=== PATIENT | male | born 1960 | race Caucasian/White ===

== ENCOUNTER 2018-06-20 16:07 | Inpatient (IN) | payer BC ==
--- OUTSIDE RECORDS SUMMARY | 2018-06-20 16:11 | XMS REPORT | Summary of Care ---
:1960 Author Organization [facility] Address [id number] [place] [phone] Encounter HQ Eshar_marino(FIN) [id number] Date(s): 01/30/16 - 01/31/16 [facility] [id number] [place] [address] [phone] Discharge Disposition: Home or Self Care Attending Physician: Rachid Sánchez MD Admitting Physician: Rachid Sánchez MD Vital Signs Most recent to oldest 1 2 3 [Reference Range]: Height 182.88 cm (01/30/16 10:51 AM) Temperature Oral [96.4-99.1 97.9 DegF 98.0 DegF 98.2 DegF DegF] (01/31/16 7:38 AM) (01/31/16 5:06 AM) (01/31/16 12:49 AM) Blood Pressure [90-140/60-90 138/87 mmHg 137/82 mmHg 154/90 mmHg mmHg] (01/31/16 7:38 AM) (01/31/16 5:06 AM) *HI* (01/31/16 12:49 AM) Respiratory Rate [14-20 16 BRMIN 16 BRMIN 16 BRMIN BRMIN] (01/31/16 7:38 AM) (01/31/16 5:06 AM) (01/31/16 12:49 AM) Peripheral Pulse Rate [60-100 82 bpm 89 bpm 86 bpm bpm] (01/31/16 7:38 AM) (01/31/16 5:06 AM) (01/31/16 12:49 AM) Weight 82.727 kg (01/30/16 10:51 AM) Body Mass Index 24.74 m2 (01/30/16 10:51 AM) Problem List Condition Effective Dates Status Health Status Informant Stroke(Confirmed) Resolved Diabetes(Confirmed) Resolved Hypertension(Confirmed) Resolved Allergies, Adverse Reactions, Alerts Substance Reaction Severity Status NKDA Active Medications amLODIPine 10 mg, 2 tab, Route: PO, Drug form: TAB, Daily, Dosing Weight 82.727, kg, Start date: 01/31/16 9:00:00 PHARMACEUTICAL LABORATORY TECHNICIAN, Duration: 30 day, Stop date: 02/29/16 9:00:00 PHARMACEUTICAL LABORATORY TECHNICIAN Notes: (Same as: [facility]) Start Date: 01/31/16 Stop Date: 01/31/16 Status: DiscontinuedamLODIPine 2.5 mg, PO, Daily, 0 Refill(s) Start Date: 01/30/16 Stop Date: 01/31/16 Status: DiscontinuedamLODIPine 10 mg oral tablet 10 mg=1 tab, PO, Daily, # 30 tab, 0 Refill(s), Pharmacy: [facility]/pharmacy #[id number] Start Date: 01/31/16 Status: Orderedaspirin 324 mg, 4 tab, Route: PO, Drug form: CHEWTAB, ONCE, Dosing Weight 82.727, kg, Priority: STAT, Start date: 01/30/16 11:23:00 PHARMACEUTICAL LABORATORY TECHNICIAN, Stop date: 01/30/16 11:23:00 PHARMACEUTICAL LABORATORY TECHNICIAN Notes: Take with food. Start Date: 01/30/16 Stop Date: 01/30/16 Status: Completedaspirin 325 mg tablet, enteric coated 325 mg, 1 tab, Route: PO, Drug form: ECTAB, Daily, Dosing Weight 82.727, kg, Start date: 01/31/16 9:00:00 PHARMACEUTICAL LABORATORY TECHNICIAN, Duration: 30 day, Stop date: 02/29/16 9:00:00 PHARMACEUTICAL LABORATORY TECHNICIAN Notes: (Do Not Crush) Do not crush or chew. Start Date: 01/31/16 Stop Date: 01/31/16 Status: Discontinuedaspirin 325 mg tablet, enteric coated 325 mg=1 tab, PO, Daily, 0 Refill(s) Start Date: 01/31/16 Status: Orderedatorvastatin 40 mg, 1 tab, Route: PO, Drug form: TAB, Bedtime, Dosing Weight 82.727, kg, Start date: 01/30/16 21:00:00 PHARMACEUTICAL LABORATORY TECHNICIAN, Duration: 30 day, Stop date: 02/28/16 21:00: 00 PHARMACEUTICAL LABORATORY TECHNICIAN Notes: (Same as: Lipitor) Start Date: 01/30/16 Stop Date: 01/31/16 Status: Discontinuedatorvastatin 80 mg, PO, Daily, 0 Refill(s) Start Date: 01/30/16 Stop Date: 01/31/16 Status: Discontinuedatorvastatin 40 mg oral tablet 40 mg=1 tab, PO, Bedtime, 0 Refill(s) Start Date: 01/31/16 Status: Orderedbaclofen 10 mg, 1 tab, Route: PO, Drug form: TAB, TID, Dosing Weight 82.727, kg, Start date: 01/31/16 13:00:00 PHARMACEUTICAL LABORATORY TECHNICIAN, Duration: 30 day, Stop date: 03/01/16 9:00:00 PHARMACEUTICAL LABORATORY TECHNICIAN Notes: (Same As: [facility]) Start Date: 01/31/16 Stop Date: 01/31/16 Status: Discontinuedbaclofen 10 mg, PO, TID, 0 Refill(s) Start Date: 01/30/16 Status: OrderedCarafate 1 g/10 mL oral suspension 1 gm, 10 mL, Route: PO, Drug form: SUSP, QID, Dosing Weight 82.727, kg, Start date: 01/30/16 21:00:00 PHARMACEUTICAL LABORATORY TECHNICIAN, Duration: 30 day, Stop date: 02/29/16 17:00:00 PHARMACEUTICAL LABORATORY TECHNICIAN Notes: Enteral feeds may interfere with the absorption of this medication. Shake well. Take 1 hr before or 2 hrs after antacids, dairy pdt, minerals & meals. (Same As: Carafate) Start Date: 01/30/16 Stop Date: 01/31/16 Status: Discontinuedcefuroxime 500 mg oral tablet 500 mg=1 tab, PO, Q12H, 0 Refill(s) Start Date: 01/30/16 Stop Date: 01/31/16 Status: DiscontinuedcloNIDine 0.2 mg, TOP, Q7D, 0 Refill(s) Start Date: 01/30/16 Status: OrderedcloNIDine patch 0.2 mg/24 hr 1 patch, Route: TOP, Drug Form: ERFILM, Dosing Weight 82.727, kg, Q7D, Start date: 01/30/16 17:53:00CST, Duration: 30 day, Stop date: 02/27/16 9:00:00 PHARMACEUTICAL LABORATORY TECHNICIAN Notes: Patch delivers 0.2 mg/24 hours; Patch is applied weekly. "Remove old patch before application of new patch" (Same As: [id number]) Start Date: 01/30/16 Stop Date: 01/31/16 Status: Discontinuedclopidogrel 75 mg, PO, Daily, 0 Refill(s) Start Date: 01/30/16 Status: OrderedDextrose 50% Syringe 12.5 gm, 25 mL, Route: IVP, Drug Form: INJ, Dosing Weight 82.727, kg, PRN, PRN Blood Glucose Results, Start date: 01/30/16 17:03:00 PHARMACEUTICAL LABORATORY TECHNICIAN, Duration: 30 day, Stop date: 02/29/16 17:02:00 PHARMACEUTICAL LABORATORY TECHNICIAN Start Date: 01/30/16 Stop Date: 01/31/16 Status: DiscontinuedDextrose 50% Syringe 25 gm, 50 mL, Route: IVP, Drug Form: INJ, Dosing Weight 82.727, kg, PRN, PRN Blood Glucose Results, Start date: 01/30/16 17:03:00 PHARMACEUTICAL LABORATORY TECHNICIAN, Duration: 30 day, Stop date: 02/29/16 17:02:00 PHARMACEUTICAL LABORATORY TECHNICIAN Start Date: 01/30/16 Stop Date: 01/31/16 Status: Discontinuedescitalopram 10 mg, 1 tab, Route: PO, Drug form: TAB, Daily, Dosing Weight 82.727, kg, Start date: 02/01/16 9:00:00 PHARMACEUTICAL LABORATORY TECHNICIAN, Duration: 30 day, Stop date: 03/01/16 9:00:00 PHARMACEUTICAL LABORATORY TECHNICIAN Notes: (Same as: Lexapro) Start Date: 02/01/16 Stop Date: 01/31/16 Status: Canceledescitalopram 10 mg, PO, Daily, 0 Refill(s) Start Date: 01/30/16 Status: Orderedglucagon 1 mg, Route: IM, Drug form: PDR/INJ, PRN, Dosing Weight 82.727, kg, PRN Blood Glucose Results, Startdate: 01/30/16 17:03:00 PHARMACEUTICAL LABORATORY TECHNICIAN, Duration: 30 day, Stop date: 02/29/16 17:02:00 PHARMACEUTICAL LABORATORY TECHNICIAN Start Date: 01/30/16 Stop Date: 01/31/16 Status: Discontinuedinsulin aspart 10 unit, 0.1 mL, Route: SUB-Q, Drug form: SOLN, TID-Before Meals, Dosing Weight 82.727, kg, PRN Blood Glucose Results, Start date: 01/30/16 17:03:00 PHARMACEUTICAL LABORATORY TECHNICIAN, Duration: 30 day, Stop date: 02/29/16 17:02:00 PHARMACEUTICAL LABORATORY TECHNICIAN Notes: Roll in palms of hands gently; Do not shake vigorously. (Same as: NovoLOG)"single patient use only"WASTE: F/P - Black; E - Municipal Trash Bin Stable for 28 days at room temperature.Expires in days from Date Start Date: 01/30/16 Stop Date: 01/31/16 Status: Discontinuedinsulin aspart 8 unit, 0.08 mL, Route: SUB-Q, Drug form: SOLN, TID-Before Meals, Dosing Weight 82.727, kg, PRN Blood Glucose Results, Start date: 01/30/16 17:03:00 PHARMACEUTICAL LABORATORY TECHNICIAN, Duration: 30 day, Stop date: 02/29/16 17:02:00 PHARMACEUTICAL LABORATORY TECHNICIAN Notes: Roll in palms of hands gently; Do not shake vigorously. (Same as: NovoLOG)"single patient use only"WASTE: F/P - Black; E - [facility] Trash Bin Stable for 28 days at room temperature.Expires in days from Date Start Date: 01/30/16 Stop Date: 01/31/16 Status: Discontinuedinsulin aspart 2 unit, 0.02 mL, Route: SUB-Q, Drug form: SOLN, TID-Before Meals, Dosing Weight 82.727, kg, PRN Blood Glucose Results, Start date: 01/30/16 17:03:00 PHARMACEUTICAL LABORATORY TECHNICIAN, Duration: 30 day, Stop date: 02/29/16 17:02:00 PHARMACEUTICAL LABORATORY TECHNICIAN Notes: Roll in palms of hands gently; Do not shake vigorously. (Same as: NovoLOG)"single patient use only"WASTE: F/P - Black; E - Municipal Trash Bin Stable for 28 days at room temperature.Expires in days from Date Start Date: 01/30/16 Stop Date: 01/31/16 Status: Discontinuedinsulin aspart 4 unit, 0.04 mL, Route: SUB-Q, Drug form: SOLN, TID-Before Meals, Dosing Weight 82.727, kg, PRN Blood Glucose Results, Start date: 01/30/16 17:03:00 PHARMACEUTICAL LABORATORY TECHNICIAN, Duration: 30 day, Stop date: 02/29/16 17:02:00 PHARMACEUTICAL LABORATORY TECHNICIAN Notes: Roll in palms of hands gently; Do not shake vigorously. (Same as: [employer])"single patient use only"WASTE: F/P - Black; E - Municipal Trash Bin Stable for 28 days at room temperature.Expires in days from Date Start Date: 01/30/16 Stop Date: 01/31/16 Status: Discontinuedinsulin aspart 6 unit, 0.06 mL, Route: SUB-Q, Drug form: SOLN, TID-Before Meals, Dosing Weight 82.727, kg, PRN Blood Glucose Results, Start date: 01/30/16 17:03:00 PHARMACEUTICAL LABORATORY TECHNICIAN, Duration: 30 day, Stop date: 02/29/16 17:02:00 PHARMACEUTICAL LABORATORY TECHNICIAN Notes: Roll in palms of hands gently; Do not shake vigorously. (Same as: NovoSeamless)"single patient use only"WASTE: F/P - Black; E - Municipal Trash Bin Stable for 28 days at room temperature.Expires in days from Date Start Date: 01/30/16 Stop Date: 01/31/16 Status: DiscontinuedInsulin regular 10 unit, Route: IVP, ONCE, Dosing Weight 82.727, kg, Priority: STAT, Start date : 01/30/16 12:53:00 PHARMACEUTICAL LABORATORY TECHNICIAN, Stop date: 01/30/16 12:53:00 PHARMACEUTICAL LABORATORY TECHNICIAN Start Date: 01/30/16 Stop Date: 01/30/16 Status: CompletedJanuvia 100 mg, 2 tab, Route: PO, Drug form: TAB, Daily, Dosing Weight 82.727, kg, Start date: 02/01/16 9:00:00 PHARMACEUTICAL LABORATORY TECHNICIAN, Duration: 30 day, Stop date: 03/01/16 9:00:00 PHARMACEUTICAL LABORATORY TECHNICIAN Notes: Same as Januvia Non-Formulary Item Start Date: 02/01/16 Stop Date: 01/31/16 Status: CanceledJanuvia 25 mg, 0.5 tab, Route: PO, Drug form: TAB, Daily, Dosing Weight 82.727, kg, Start date: 01/31/16 9:00:00 PHARMACEUTICAL LABORATORY TECHNICIAN, Duration: 30 day, Stop date: 02/29/16 9:00:00 PHARMACEUTICAL LABORATORY TECHNICIAN Notes: Same as Januvia Non-Formulary Item Start Date: 01/31/16 Stop Date: 01/31/16 Status: DiscontinuedJanuvia 100 mg oral tablet 100 mg=1 tab, PO, Daily, 0 Refill(s) Start Date: 01/30/16 Status: OrderedLantus Solostar Pen 100 units/mL subcutaneous solution 15 unit, SUB-Q, Bedtime, start on 01/31, # 10 mL, 0 Refill(s), Pharmacy: [facility]/ pharmacy #[id number] Start Date: 01/31/16 Status: OrderedLantus Solostar Pen 100 units/mL subcutaneous solution 15 unit, Route: SUB-Q, Bedtime, Dosing Weight 82.727, kg, Start date: 01/31/16 21:00:00 PHARMACEUTICAL LABORATORY TECHNICIAN, Duration: 30 day, Stop date: 02/29/16 21:00:00 PHARMACEUTICAL LABORATORY TECHNICIAN Start Date: 01/31/16 Stop Date: 01/31/16 Status: DeletedLevemir FlexPen 15 unit, 0.15 mL, Route: SUB-Q, Drug form: INJ, Bedtime, Start date: 01/31/16 21 :00:00 PHARMACEUTICAL LABORATORY TECHNICIAN, Duration: 30 day, Stop date: 02/29/16 21:00:00 PHARMACEUTICAL LABORATORY TECHNICIAN Notes: Same as LevemirDo not hold insulin without contacting prescriberWASTE: F/ P - Black; E - [facility] "single patient use only" Start Date: 01/31/16 Stop Date: 01/31/16 Status: CanceledmetFORMIN 500 mg, PO, Daily, 0 Refill(s) Start Date: 01/30/16 Status: Orderedmetoprolol tartrate 25 mg, 1 tab, Route: PO, Drug form: TAB, Q12H, Dosing Weight 82.727, kg, Start date: 01/30/16 21:00:00 PHARMACEUTICAL LABORATORY TECHNICIAN, Duration: 30 day, Stop date: 02/29/16 9:00:00 PHARMACEUTICAL LABORATORY TECHNICIAN Notes: (Same as: Lopressor) Start Date: 01/30/16 Stop Date: 01/31/16 Status: Discontinuedmetoprolol tartrate 25 mg, PO, Daily, 0 Refill(s) Start Date: 01/30/16 Status: OrderedNP Thyroid 30 mg oral tablet 30 mg=1 tab, PO, Daily, 0 Refill(s) Start Date: 01/30/16 Status: Orderedomeprazole 40 mg, PO, Daily, 0 Refill(s) Start Date: 01/30/16 Status: Orderedomeprazole 40 mg, Route: PO, Drug form: ECCAP, Before Breakfast, Dosing Weight 82.727, kg, Start date: 167:30:00 PHARMACEUTICAL LABORATORY TECHNICIAN, Duration: 30 day, Stop date: 02/29/16 7:30:00 PHARMACEUTICAL LABORATORY TECHNICIAN Start Date: 01/31/16 Stop Date: 01/30/16 Status: Deletedondansetron 8 mg, PO, TID, PRN as needed for nausea/vomiting, 0 Refill(s) Start Date: 01/30/16 Status: OrderedPlavix 75 mg, 1 tab, Route: PO, Drug form: TAB, Daily, Dosing Weight 82.727, kg, Start date: 01/31/16 9:00:00 PHARMACEUTICAL LABORATORY TECHNICIAN, Duration: 30 day, Stop date: 02/29/16 9:00:00 PHARMACEUTICAL LABORATORY TECHNICIAN Notes: (Same As: Plavix) Start Date: 01/31/16 Stop Date: 01/31/16 Status: DiscontinuedProtonix 40 mg, 1 tab, Route: PO, Drug form: ECTAB, Before Breakfast, Start date: 7:30:00 PHARMACEUTICAL LABORATORY TECHNICIAN, Duration: 30 day, Stop date: 02/29/16 7:30:00 PHARMACEUTICAL LABORATORY TECHNICIAN Notes: Tablet should not be chewed or crushed.(Same as: Protonix) Start Date: 01/31/16 Stop Date: 01/31/16 Status: DiscontinuedSaline Flush 0.9% 10 mL, Route: IVP, Drug Form: INJ, Dosing Weight 82.727, kg, PRN, PRN Line Flush , Start date: 01/30/16 11:23:00 PHARMACEUTICAL LABORATORY TECHNICIAN, Duration: 30 day, Stop date: 02/29/16 11:22 :00 PHARMACEUTICAL LABORATORY TECHNICIAN Notes: (Same as: BD Posiflush) Start Date: 01/30/16 Stop Date: 01/31/16 Status: DiscontinuedSodium Chloride 0.9% (Bolus) IV 500 mL, 2,000 ml/hr, Infuse Over: 15 minutes, Route: IV, ONCE, Priority: STAT, Dosing Weight 82.727 kg, Start date: 01/30/16 12:53:00 PHARMACEUTICAL LABORATORY TECHNICIAN, Duration: 1 doses or times, Stop date: 01/30/16 12:53:00 PHARMACEUTICAL LABORATORY TECHNICIAN Start Date: 01/30/16 Stop Date: 01/30/16 Status: Completedsodium chloride 0.9% 1000 ml INJ 1,000 mL 1,000 mL, Rate: 75 ml/hr, Infuse over: 13.3 hr, Route: IV, Dosing Weight 82.727 kg, Total Volume: 1,000, Start date: 01/30/16 17:01:00 PHARMACEUTICAL LABORATORY TECHNICIAN, Duration: 30 day, Stop date: 02/29/16 17:00:00 PHARMACEUTICAL LABORATORY TECHNICIAN Start Date: 01/30/16 Stop Date: 01/31/16 Status: Discontinuedthyroid desiccated 30 mg, 1 tab, Route: PO, Drug form: TAB, Daily, Dosing Weight 82.727, kg, Start date: 02/01/16 9:00:00 PHARMACEUTICAL LABORATORY TECHNICIAN, Duration: 30 day, Stop date: 03/01/16 9:00:00 PHARMACEUTICAL LABORATORY TECHNICIAN Notes: (Same As: Yolis Thyroid, S-P-T) Start Date: 02/01/16 Stop Date: 01/31/16 Status: Canceledtramadol 50 mg oral tablet 100 mg, 2 tab, Route: PO, Drug form: TAB, QID, Dosing Weight 82.727, kg, PRN Pain Score 1-5, Start date: 01/31/16 9:38:00 PHARMACEUTICAL LABORATORY TECHNICIAN, Duration: 30 day, Stop date: 03/01/16 9:37:00 PHARMACEUTICAL LABORATORY TECHNICIAN Notes: Not to exceed 400mg/day. (Same As: Ultram) Start Date: 01/31/16 Stop Date: 01/31/16 Status: Discontinuedtramadol 50 mg oral tablet 100 mg=2 tab, PO, QID, PRN pain, 0 Refill(s) Start Date: 01/30/16 Status: OrderedTylenol 650 mg, 2 tab, Route: PO, Drug form: TAB, Q6H, Dosing Weight 82.727, kg, PRN Pain 1-3/Temp > 100.4 F, Start date: 01/30/16 17:02:00 PHARMACEUTICAL LABORATORY TECHNICIAN, Duration: 30 day, Stop date: 02/29/16 17:01:00 PHARMACEUTICAL LABORATORY TECHNICIAN Notes: Do not exceed 4 gm/day. (Same as: Tylenol) Start Date: 01/30/16 Stop Date: 01/31/16 Status: DiscontinuedZofran 4 mg, 2 mL, Route: IVP, Drug form: INJ, Q8H, Dosing Weight 82.727, kg, PRN Nausea, Start date: 01/30/16 17:01:00 PHARMACEUTICAL LABORATORY TECHNICIAN, Duration: 30 day, Stop date: 17:00:00 PHARMACEUTICAL LABORATORY TECHNICIAN Notes: (Same as: Zofran) MEDICATION WASTE Product Size: 4 mgProduct Wasted: ___ mg Start Date: 01/30/16 Stop Date: 01/31/16 Status: DiscontinuedZofran 4 mg, Route: IVP, Drug form: INJ, ONCE, Dosing Weight 82.727, kg, Priority: STAT , Start date: 01/30/16 12:54:00 PHARMACEUTICAL LABORATORY TECHNICIAN, Stop date: 01/30/16 12:54:00 PHARMACEUTICAL LABORATORY TECHNICIAN Start Date: 01/30/16 Stop Date: 01/30/16 Status: Completed Results ELECTROLYTES Most recent to oldest [Reference Range]: 1 2 3 Sodium Lvl [135-145 mEq/L] 137 mEq/L 133 mEq/L (01/31/16 3:46 AM) *LOW* (01/30/16 12:01 PM) Potassium Lvl [3.5-5.1 mEq/L] 4.2 mEq/L 4.9 mEq/L (01/31/16 3:46 AM) (01/30/16 12:01 PM) Chloride Lvl [95-109 mEq/L] 100 mEq/L 97 mEq/L (01/31/16 3:46 AM) (01/30/16 12:01 PM) CO2 [24-32 mEq/L] 29 mEq/L 31 mEq/L (01/31/16 3:46 AM) (01/30/16 12:01 PM) AGAP [10.0-20.0 mEq/L] 12.2 mEq/L 9.9 mEq/L (01/31/16 3:46 AM) *LOW* (01/30/16 12: PM) CHEM PANEL Most recent to oldest [Reference Range]: 1 2 3 Creatinine Lvl [0.50-1.40 mg/dL] 0.77 mg/dL 1.00 mg/dL (01/31/16 3:46 AM) (01/30/16 12:01 PM) eGFR 104 mL/min/1.73m2 1 86 mL/min/1.73m2 2 *NA* *NA* (01/31/16 3:46 AM) (01/30/16 12:01 PM) BUN [7-22 mg/dL] 15 mg/dL 15 mg/dL (01/31/16 3:46 AM) (01/30/16 12:01 PM) B/C Ratio [6-25] 19 15 (01/31/16 3:46 AM) (01/30/16 12:01 PM) Glucose Lvl [70-99 mg/dL] 283 mg/dL 368 mg/dL *HI* *HI* (01/31/16 3:46 AM) (01/30/16 12:01 PM) Total Protein [6.4-8.4 g/dL] 6.9 g/dL 8.1 g/dL (01/31/16 3:46 AM) (01/30/16 12:01 PM) Albumin Lvl [3.5-5.0 g/dL] 3.6 g/dL 4.0 g/dL (01/31/16 3:46 AM) (01/30/16 12:01 PM) Globulin [2.7-4.2 g/dL] 3.3 g/dL 4.1 g/dL (01/31/16 3:46 AM) (01/30/16 12:01 PM) A/G Ratio [0.7-1.6] 1.1 1.0 (01/31/16 3:46 AM) (01/30/16 12:01 PM) Calcium Lvl [8.5-10.5 mg/dL] 8.8 mg/dL 8.9 mg/dL (01/31/16 3:46 AM) (01/30/16 12:01 PM) ALT [0-65 unit/L] 18 unit/L 22 unit/L (01/31/16 3:46 AM) (01/30/16 12:01 PM) AST [0-37 unit/L] 16 unit/L 11 unit/L (01/31/16 3:46 AM) (01/30/16 12:01 PM) Alk Phos [39-136 unit/L] 108 unit/L 121 unit/L (01/31/16 3:46 AM) (01/30/16 12:01 PM) Bili Total [0.2-1.3 mg/dL] 0.4 mg/dL 0.4 mg/dL (01/31/16 3:46 AM) (01/30/16 12:01 PM) 1Result Comment: The eGFR is calculated using the CKD-EPI formula. In most young , healthy individualsthe eGFR will be >90 mL/min/1.73m2. The eGFR declines with age. An eGFR of 60-89 may be normal in some populations, particularly the elderly, for whom the CKD-EPI formula has not been extensively validated. Use of the eGFR is not recommended in the following populations: Individuals with unstable creatinine concentrations, including patients and those with serious co-morbid conditions. Patients with extremes in muscle mass or diet. The data above are obtained from the National Kidney Disease Education Program ( NKDEP) which additionally recommends that when the eGFR is used in patients with extremes of body mass index for purposesof drug dosing, the eGFR should be multiplied by the estimated BMI.2Result Comment: The eGFR is calculated using the CKD-EPI formula. In most young, healthy individualsthe eGFR will be >90 mL/ min/1.73m2. The eGFR declines with age. An eGFR of 60-89 may be normal in some populations, particularly the elderly, for whom the CKD-EPI formula has not been extensively validated. Use of the eGFR is not recommended in the following populations: Individuals with unstable creatinine concentrations, including patients and those with serious co-morbid conditions. Patients with extremes in muscle mass or diet. The data above are obtained from the National Kidney Disease Education Program ( NKDEP) which additionally recommends that when the eGFR is used in patients with extremes of body mass index for purposesof drug dosing, the eGFR should be multiplied by the estimated BMI.CARDIAC ENZYMES Most recent to oldest 1 2 3 [Reference Range]: Total CK [12-191 unit/L] 62 unit/L 52 unit/L 61 unit/L (01/30/16 9:57 PM) (01/30/16 6:11 PM) (01/30/16 12:01 PM) CK MB [0.5-3.6 ng/mL] 3.7 ng/mL *HI* (01/30/16 12:01 PM) CK MB Index [0.0-2.5] 6.1 *HI* (01/30/16 12:01 PM) Troponin-I [0.00-0.40 ng/mL] <0.02 ng/mL <0.02 ng/mL <0.02 ng/mL (01/30/16 9:57 PM) (01/30/16 6:11 PM) (01/30/16 12:01 PM) proBNP [0-125 pg/mL] 99 pg/mL (01/30/16 12:01 PM) LIPIDS Most recent to oldest [Reference Range]: 1 2 3 CHD Risk [4.00-7.30] 4.39 (01/31/16 3:46 AM) Chol [<=199 mg/dL] 123 mg/dL (01/31/16 3:46 AM) Trig [<=149 mg/dL] 276 mg/dL *HI* (01/31/16 3:46 AM) HDL [>=61 mg/dL] 28 mg/dL *LOW* (01/31/16 3:46 AM) LDL (Calculated) [<=99 mg/dL] 40 mg/dL (01/31/16 3:46 AM) VLDL 55 *NA* (01/31/16 3:46 AM) SPECIAL CHEMISTRY Most recent to oldest [Reference Range]: 1 2 3 Hgb A1C [<=5.6 %] 10.6 % *HI* (01/31/16 3:46 AM) HEMATOLOGY Most recent to oldest [Reference Range]: 1 2 3 WBC [3.7-10.4 K/CMM] 6.0 K/CMM 7.8 K/CMM (01/31/16 3:46 AM) (01/30/16 12:01 PM) RBC [4.70-6.10 M/CMM] 4.07 M/CMM 4.38 M/CMM *LOW* *LOW* (01/31/16 3:46 AM) (01/30/16 12:01 PM) Hgb [14.0-18.0 g/dL] 12.0 g/dL 12.9 g/dL *LOW* *LOW* (01/31/16 3:46 AM) (01/30/16 12:01 PM) Hct [42.0-54.0 %] 34.2 % 37.4 % *LOW* *LOW* (01/31/16 3:46 AM) (01/30/16 12:01 PM) MCV [80.0-94.0 fL] 84.1 fL 85.4 fL (01/31/16 3:46 AM) (01/30/16 12:01 PM) MCH [27.0-31.0 pg] 29.6 pg 29.5 pg (01/31/16 3:46 AM) (01/30/16 12:01 PM) MCHC [32.0-36.0 g/dL] 35.2 g/dL 34.6 g/dL (01/31/16 3:46 AM) (01/30/16 12:01 PM) RDW [11.5-14.5 %] 13.3 % 13.1 % (01/31/16 3:46 AM) (01/30/16 12:01 PM) Platelet [133-450 K/CMM] 187 K/CMM 203 K/CMM (01/31/16 3:46 AM) (01/30/16 12:01 PM) MPV [7.4-10.4 fL] 8.4 fL 8.5 fL (01/31/16 3:46 AM) (01/30/16 12:01 PM) Segs [45.0-75.0 %] 59.5 % 75.5 % (01/31/16 3:46 AM) *HI* (01/30/16 12:01 PM) Lymphocytes [20.0-40.0 %] 27.7 % 16.0 % (01/31/16 3:46 AM) *LOW* (01/30/16 12:01 PM) Monocytes [2.0-12.0 %] 7.8 % 5.5 % (01/31/16 3:46 AM) (01/30/16 12:01 PM) Eosinophils [0.0-4.0 %] 4.6 % 2.6 % *HI* (01/30/16 12:01 PM) (01/31/16 3:46 AM) Basophils [0.0-1.0 %] 0.4 % 0.4 % (01/31/16 3:46 AM) (01/30/16 12:01 PM) Segs-Bands # [1.5-8.1 K/CMM] 3.6 K/CMM 5.9 K/CMM (01/31/16 3:46 AM) (01/30/16 12:01 PM) Lymphocytes # [1.0-5.5 K/CMM] 1.7 K/CMM 1.3 K/CMM (01/31/16 3:46 AM) (01/30/16 12:01 PM) Monocytes # [0.0-0.8 K/CMM] 0.5 K/CMM 0.4 K/CMM (01/31/16 3:46 AM) (01/30/16 12:01 PM) Eosinophils # [0.0-0.5 K/CMM] 0.3 K/CMM 0.2 K/CMM (01/31/16 3:46 AM) (01/30/16 12:01 PM) Immunizations No data available for this section Procedures No data available for this section Social History Social History Type Response Smoking Status Never smoker; Exposure to Tobacco Smoke None; Cigarette Smoking Last 365 Days No; Reg Smoking Cessation Counseling No Assessment and Plan No data available for this section
--- OUTSIDE RECORDS SUMMARY | 2018-06-20 16:11 | XMS REPORT | Continuity of Care Document ---
:1960 Author Organization Interface Problems Problem Status Onset Classification Date Comments Source Date Reported COUGH Active 02/19/20 [place] [address] S[place] NAUSEA/ Active 01/30/20 [facility] DIZZINESS 16 [place] CHEST PAIN Active 01/30/20 [facility] [place] CHEST Active 01/30/20 [facility] PAINZZINESS 16 [place] Stroke Resolved Problem 02/22/2016 [facility] Diabetes Resolved Problem 02/22/2016 [facility] Hypertension Resolved Problem 02/22/2016 [facility] CHEST PAIN, Active [facility] UNSPECIFIED Sarthak Medications Medication Details Route Status Patient Ordering Order Source Instructions Provider Date thyroid (CUSTODIAL) 30 mg, 1 tab, No Longer MH Route: PO, Active Leann Rose Drug form: TAB, Daily, Dosing Weight 82.727, kg, Start date: 02/01/16 9:00:00 [employer], Duration: 30 day, Stop date: 03/01/16 9:00:00 CSTNotes: (Same As: Yolis Thyroid, S-P-T) Januvia 100 mg, 2 No Longer MH tab, Route: Active Leann Rose PO, Drug form: TAB, Daily, Dosing Weight 82.727, kg, Start date: 02/01/16 9:00:00 [employer], Duration: 30 day, Stop date: 03/01/16 9:00:00 CSTNotes: Same as Januvia Non-Formulary Item Escitalopram 10 mg, 1 tab, No Longer MH Route: PO, Active 016 [place] Drug form: TAB, Daily, Dosing Weight 82.727, kg, Start date: 02/01/16 9:00:00 [employer], Duration: 30 day, Stop date: 03/01/16 9:00:00 CSTNotes: (Same as: Lexapro) Levemir FlexPen 15 unit, 0.15 Inactive MH mL, Route: 016 [place] SUB-Q, Drug form: INJ, Bedtime, Start date: 01/31/16 21:00:00 [employer], Duration: 30 day, Stop date: 02/29/16 21:00:00 CSTNotes: Same as Levemir Do not hold insulin without contacting prescriber WASTE: F/P - Black; E - Municipal Trash Bin "single patient use only" 3 ML Insulin 15 unit, Inactive MH Glargine 100 Route: SUB-Q, 016 [place] UNT/ML Bedtime, Prefilled Dosing Weight Syringe 82.727, kg, [Lantus] Start date: 01/31/16 21:00:00 [employer], Duration: 30 day, Stop date: 02/29/16 21:00:00 [employer] Baclofen 10 mg, 1 tab, Inactive MH Route: PO, 016 [place] Drug form: TAB, TID, Dosing Weight 82.727, kg, Start date: 01/31/16 13:00:00 [employer], Duration: 30 day, Stop date: 03/01/16 9:00:00 CSTNotes: (Same As: Lila) Aspirin 325 MG 325 mg=1 tab, Active MH Enteric Coated PO, Daily, 0 016 [place] Tablet Refill(s) atorvastatin 40 40 mg=1 tab, Active MH mg oral tablet PO, Bedtime, 016 [place] 0 Refill(s) 3 ML Insulin 15 unit, Active MH Glargine 100 SUB-Q, 016 [place] UNT/ML Bedtime, Prefilled start on Syringe 01/31, # 10 [Lantus] mL, 0 Refill(s), Pharmacy: [facility]/pharmacy #[id number] amLODIPine 10 10 mg=1 tab, Active MH mg oral tablet PO, Daily, # 016 [place] 30 tab, 0 Refill(s), Pharmacy: [facility]/pharmacy #[id number] tramadol 100 mg, 2 Inactive MH hydrochloride tab, Route: 016 [place] 50 MG Oral PO, Drug Tablet form: TAB, QID, Dosing Weight 82.727, kg, PRN Pain Score 1-5, Start date: 01/31/16 9:38:00 [employer], Duration: 30 day, Stop date: 03/01/16 9:37:00 CSTNotes: Not to exceed 400mg/day. (Same As: Ultra) Amlodipine 10 mg, 2 tab, Inactive Route: PO, 016 [place] Drug form: TAB, Daily, Dosing Weight 82.727, kg, Start date: 01/31/16 9:00:00 [employer], Duration: 30 day, Stop date: 02/29/16 9:00:00 CSTNotes: (Same as: Norvasc) Aspirin 325 MG 325 mg, 1 Inactive MH Enteric Coated tab, Route: 016 [place] Tablet PO, Drug form: ECTAB, Daily, Dosing Weight 82.727, kg, Start date: 01/31/16 9:00:00 [employer], Duration: 30 day, Stop date: 02/29/16 9:00:00 CSTNotes: (Do Not Crush) Do not crush or chew. Plavix 75 mg, 1 tab, Inactive MH Route: PO, 016 [place] Drug form: TAB, Daily, Dosing Weight 82.727, kg, Start date: 01/31/16 9:00:00 [employer], Duration: 30 day, Stop date: 02/29/16 9:00:00 CSTNotes: (Same As: Plavix) Januvia 25 mg, 0.5 Inactive MH tab, Route: 016 [place] PO, Drug form: TAB, Daily, Dosing Weight 82.727, kg, Start date: 01/31/16 9:00:00 [employer], Duration: 30 day, Stop date: 02/29/16 9:00:00 CSTNotes: Same as Januvia Non-Formulary Item Protonix 40 mg, 1 tab, Inactive MH Route: PO, 016 [place] Drug form: ECTAB, Before Breakfast, Start date: 01/31/16 7:30:00 [employer], Duration: 30 day, Stop date: 02/29/16 7:30:00 CSTNotes: Tablet should not be chewed or crushed. (Same as: Protonix) Omeprazole 40 mg, Route: No Longer MH PO, Drug Active 016 [place] form: ECCAP, Before Breakfast, Dosing Weight 82.727, kg, Start date: 01/31/16 7:30:00 [employer], Duration: 30 day, Stop date: 02/29/16 7:30:00 [employer] Sucralfate 100 1 gm, 10 mL, No Longer MH MG/ML Oral Route: PO, Active 016 [place] Suspension Drug form: [Carafate] SUSP, QID, Dosing Weight 82.727, kg, Start date: 01/30/16 21:00:00 [employer], Duration: 30 day, Stop date: 02/29/16 17:00:00 CSTNotes: Enteral feeds may interfere with the absorption of this medication. Shake well. Take 1 hr before or 2 hrs after antacids, dairy pdt, minerals & meals. (Same As: Carafate) atorvastatin 40 mg, 1 tab, No Longer MH Route: PO, Active 016 [place] Drug form: TAB, Bedtime, Dosing Weight 82.727, kg, Start date: 01/30/16 21:00:00 [employer], Duration: 30 day, Stop date: 02/28/16 21:00:00 CSTNotes: (Same as: Lipitor) metoprolol 25 mg, 1 tab, No Longer MH tartrate Route: PO, Active 016 [place] Drug form: TAB, Q12H, Dosing Weight 82.727, kg, Start date: 01/30/16 21:00:00 [employer], Duration: 30 day, Stop date: 02/29/16 9:00:00 CSTNotes: (Same as: Lopressor) Cefuroxime 500 500 mg=1 tab, No Longer MH MG Oral Tablet PO, Q12H, 0 Active 016 [place] Refill(s) Ondansetron 8 mg, PO, Active MH TID, PRN as 016 [place] needed for nausea/vomiti ng, 0 Refill(s) Omeprazole 40 mg, PO, Active MH Daily, 0 016 [place] Refill(s) thyroid (CUSTODIAL) 30 mg=1 tab, Active MH 30 MG Oral PO, Daily, 0 016 [place] Tablet [ENG[employer]ACHINE Refill(s) Thyroid] tramadol 100 mg=2 tab, Active MH hydrochloride PO, QID, PRN 016 [place] 50 MG Oral pain, 0 Tablet Refill(s) sitagliptin 100 100 mg=1 tab, Active MH MG Oral Tablet PO, Daily, 0 016 [place] [Januvia] Refill(s) Metformin 500 mg, PO, Active Daily, 0 016 [place] Refill(s) Baclofen 10 mg, PO, Active MH TID, 0 016 [place] Refill(s) Amlodipine 2.5 mg, PO, No Longer Daily, 0 Active 016 [place] Refill(s) clopidogrel 75 mg, PO, Active Daily, 0 016 [place] Refill(s) Escitalopram 10 mg, PO, Active Daily, 0 016 [place] Refill(s) atorvastatin 80 mg, PO, No Longer Daily, 0 Active 016 [place] Refill(s) Clonidine 0.2 mg, TOP, Active Q7D, 0 016 [place] Refill(s) metoprolol 25 mg, PO, Active tartrate Daily, 0 016 [place] Refill(s) 168 HR 1 patch, No Longer Clonidine Route: TOP, Active 016 [place] 0.73133 MG/HR Drug Form: Transdermal ERFILM, Patch Dosing Weight 82.727, kg, Q7D, Start date: 01/30/16 17:53:00 [employer], Duration: 30 day, Stop date: 02/27/16 9:00:00 CSTNotes: Patch delivers 0.2 mg/24 hours; Patch is applied weekly. "Remove old patch before application of new patch" (Same As: Catapres-TTS- 2) Dextrose 50% 12.5 gm, 25 No Longer MH Syringe mL, Route: Active 016 [place] IVP, Drug Form: INJ, Dosing Weight 82.727, kg, PRN, PRN Blood Glucose Results, Start date: 01/30/16 17:03:00 [employer], Duration: 30 day, Stop date: 02/29/16 17:02:00 [employer] Glucagon 1 mg, Route: No Longer IM, Drug Active 016 [place] form: PDR/INJ, PRN, Dosing Weight 82.727, kg, PRN Blood Glucose Results, Start date: 01/30/16 17:03:00 [employer], Duration: 30 day, Stop date: 02/29/16 17:02:00 [employer] Insulin, 10 unit, 0.1 No Longer MH Aspart, Human mL, Route: Active 016 [place] SUB-Q, Drug form: SOLN, TID-Before Meals, Dosing Weight 82.727, kg, PRN Blood Glucose Results, Start date: 01/30/16 17:03:00 [employer], Duration: 30 day, Stop date: 02/29/16 17:02:00 CSTNotes: Roll in palms of hands gently; Do not shake vigorously. (Same as: NovoLOG) "single patient use only" WASTE: F/P - Black; E - Municipal Trash Bin Stable for 28 days at room temperature. Expires in days from _Date Tylenol 650 mg, 2 No Longer MH tab, Route: Active 016 [place] PO, Drug form: TAB, Q6H, Dosing Weight 82.727, kg, PRN Pain 1-3/Temp > 100.4 F, Start date: 01/30/16 17:02:00 [employer], Duration: 30 day, Stop date: 02/29/16 17:01:00 CSTNotes: Do not exceed 4 gm/day. (Same as: Tylenol) sodium chloride 1,000 mL, No Longer MH 0.9% 1000 ml Rate: 75 Active 016 [place] INJ 1,000 mL ml/hr, Infuse over: 13.3 hr, Route: IV, Dosing Weight 82.727 kg, Total Volume: 1,000, Start date: 01/30/16 17:01:00 [employer], Duration: 30 day, Stop date: 02/29/16 17:00:00 [employer] Zofran 4 mg, 2 mL, No Longer 2 MH Route: IVP, Active 016 [place] Drug form: INJ, Q8H, Dosing Weight 82.727, kg, PRN Nausea, Start date: 01/30/16 17:01:00 [employer], Duration: 30 day, Stop date: 02/29/16 17:00:00 CSTNotes: (Same as: Zofran) MEDICATION WASTE Product Size: 4 mg Product Wasted: ___ mg Zofran 4 mg, Route: Inactive IVP, Drug Leann Rose form: INJ, ONCE, Dosing Weight 82.727, kg, Priority: STAT, Start date: 01/30/16 12:54:00 [employer], Stop date: 01/30/16 12:54:00 [employer] Insulin regular 10 unit, Inactive Route: IVP, 016 [place] ONCE, Dosing Weight 82.727, kg, Priority: STAT, Start date: 01/30/16 12:53:00 [employer], Stop date: 01/30/16 12:53:00 [employer] Sodium Chloride 500 mL, 2,000 Inactive 0.154 MEQ/ML ml/hr, Infuse 016 [place] Injectable Over: 15 Solution minutes, Route: IV, ONCE, Priority: STAT, Dosing Weight 82.727 kg, Start date: 01/30/16 12:53:00 [employer], Duration: 1 doses or times, Stop date: 01/30/16 12:53:00 [employer] Saline Flush 10 mL, Route: No Longer 0.9% IVP, Drug Active Leann Rose Form: INJ, Dosing Weight 82.727, kg, PRN, PRN Line Flush, Start date: 01/30/16 11:23:00 [employer], Duration: 30 day, Stop date: 02/29/16 11:22:00 CSTNotes: (Same as: BD Posiflush) Aspirin 324 mg, 4 Inactive tab, Route: Leann [place] PO, Drug form: CHEWTAB, ONCE, Dosing Weight 82.727, kg, Priority: STAT, Start date: 01/30/16 11:23:00 [employer], Stop date: 01/30/16 11:23:00 CSTNotes: Take with food. Allergies, Adverse Reactions, Alerts Substance Category Reaction Severity Reaction Status Date Comments Source type Reported Immunizations Immunization Date Given Site Status Last Updated Comments Source Results Order Name Results Value Reference Date Interpretation Comments Source Range Chest 2 Chest 2 Two-view chest Patient Name: ANGELITA AMBROSE 02/18 - [facility] DX views DX /2015 - Sarthak : 1960; Age: 55 years Male MR: [id number] Read by: Jakob Soria MD Dictated Date/time: 02/19/16 19:11 Electronically Signed by: Jakob Soria MD 02/19/16 19:13 FINAL REPORT Study: Chest 2 views DX Order Time: 02/19/2016 6:56 PM [employer] Clinical Indication: Cough and fever. COMPARISON: 01/30/2016. FINDINGS: Views: 2 LUNGS: There is increased lung volume. There are no suspicious interstitial/airspace opacities. There are no pleural effusions. There is no pneumothorax. The pulmonary vasculature is normal. MEDIASTINUM: The cardiac silhouette is normal. The trachea is midline. There is tortuous unfolding of the aorta. BONES: Mild thoracic spurring. IMPRESSION: No radiographic evidence of acute pulmonary disease. Mild hyperinflation. SL: [id number] CHEM PANEL Globulin 3.3 g/dL 2.7 - 4.2 01/30 [place] CHEM PANEL B/C Ratio 19 6 - 25 01/30 [place] CHEM PANEL A/G Ratio 1.1 0.7 - 1.6 01/30 [place] CHEM PANEL AGAP 12.2 meq/L 10.0 - 12 MH 20.0 /2015 [place] CHEM PANEL eGFR 104 01/30 Result Comment: The eGFR is calculated using the CKD-EPI formula. In most young, healthy individuals the eGFR will be >90 mL/ min/1.73m2. The eGFR declines with age. An eGFR of 60-89 may be normal in mL/min/1.7 /2016 some populations, particularly the elderly, for whom the CKD-EPI formula has not been extensively validated. Use of the eGFR is not recommended in the following populations: [address] Individuals with unstable creatinine concentrations, including patients and those with serious co-morbid conditions. Patients with extremes in muscle mass or diet. The data above are obtained from the National Kidney Disease Education Program (NKDEP) which additionally recommends that when the eGFR is used in patients with extremes of body mass index for purposes of drug dosing, the eGFR should be multiplied by the estimated BMI. CHEM PANEL ASPARTATE 16 unit/L 0 - 37 01/30 TRANSAMINASE [place] CHEM PANEL Total 6.9 g/dL 6.4 - 8.4 01/30 [place] CHEM PANEL CO2 29 meq/L 24 - 32 01/30 [place] CHEM PANEL Calcium Lvl 8.8 mg/dL 8.5 - 10.5 01/30 [place] CHEM PANEL Bili Total 0.4 mg/dL 0.2 - 1.3 01/30 [place] CHEM PANEL Chloride Lvl 100 meq/L 95 - 109 01/30 [place] CHEM PANEL Creatinine 0.77 mg/dL 0.50 - 01/30 MH Lvl 1.40 [place] CHEM PANEL Sodium Lvl 137 meq/L 135 - 145 01/30 [place] CHEM PANEL Potassium 4.2 meq/L 3.5 - 5.1 01/30 Lvl [place] CHEM PANEL Alk Phos 108 unit/L 39 - 136 01/30 [place] CHEM PANEL ALANINE 18 unit/L 0 - 65 01/30 AMINOTRANS [place] RASE CHEM PANEL Albumin Lvl 3.6 g/dL 3.5 - 5.0 01/30 [place] CHEM PANEL BUN 15 mg/dL 7 - 22 01/30 [place] CHEM PANEL Glucose Lvl 283 mg/dL 70 - 99 01/30 [place] HEMATOLOGY Monocytes # 0.5 K/CMM 0.0 - 0.8 01/30 [place] HEMATOLOGY Eosinophils 0.3 K/CMM 0.0 - 0.5 01/30 [place] HEMATOLOGY Lymphocytes 1.7 K/CMM 1.0 - 5.5 01/30 [place] HEMATOLOGY Segs-Bands # 3.6 K/CMM 1.5 - 8.1 01/30 [place] HEMATOLOGY Eosinophils 4.6 % 0.0 - 4.0 01/30 [place] HEMATOLOGY Basophils 0.4 % 0.0 - 1.0 01/30 [place] HEMATOLOGY Segs 59.5 % 45.0 - 12 MH 75.0 [place] HEMATOLOGY Lymphocytes 27.7 % 20.0 - 01/30 MH 40.0 [place] HEMATOLOGY Monocytes 7.8 % 2.0 - 12.0 01/30 [place] HEMATOLOGY WBC X 10x3 6.0 K/CMM 3.7 - 10.4 01/30 [place] HEMATOLOGY MPV 8.4 fL 7.4 - 10.4 01/30 /2015 [place] HEMATOLOGY RBC X 10x6 4.07 M/CMM 4.70 - 01/30 MH 6. [place] HEMATOLOGY Hgb 12.0 g/dL 14.0 - 01/30 MH 18.0 [place] HEMATOLOGY Platelet 187 K/CMM 133 - 450 01/30 /2015 [place] HEMATOLOGY RDW 13.3 % 11.5 - 01/30 MH 14. [place] HEMATOLOGY Hct 34.2 % 42.0 - 01/30 MH 54.0 [place] HEMATOLOGY MCHC 35.2 g/dL 32.0 - 01/30 MH 36.0 [place] HEMATOLOGY MCV 84.1 fL 80.0 - 01/30 MH 94.0 [place] HEMATOLOGY MCH 29.6 pg 27.0 - 01/30 MH 31.0 [place] LIPIDS CHD Risk 4.39 4.00 - 01/30 MH 7. [place] LIPIDS VLDL 55 01/30 /2015 [place] LIPIDS LDL 40 mg/dL <=99 mg/dL 01/30 (Calculated) [place] LIPIDS HDL 28 mg/dL >=61 mg/dL 01/30 [place] LIPIDS Chol 123 mg/dL <=199 01/30 mg/dL [place] LIPIDS Trig 276 mg/dL <=149 01/30 mg/dL [place] SPECIAL Hgb A1C 10.6 % <=5.6 % 01/30 CHEMISTRY /2015 [place] CARDIAC Total CK 62 unit/L - 01/30 ENZYMES [place] CARDIAC Troponin-I null 0.00 - 01/30 ENZYMES 0. [place] CARDIAC Total CK 52 unit/L - 01/30 ENZYMES /2015 [place] CARDIAC Troponin-I null 0.00 - 01/30 ENZYMES 0. [place] CARDIAC CK MB 3.7 ng/mL 0.5 - 3.6 01/29 ENZYMES /2015 [place] CARDIAC Troponin-I null 0.00 - 01/29 ENZYMES 0.40 [place] CARDIAC Total CK 61 unit/L - 01/29 ENZYMES /2015 [place] CARDIAC proBNP 99 pg/mL 0 - 125 01/29 ENZYMES /2015 [place] CARDIAC CK-MB INDEX 6.1 0.0 - 2.5 01/29 ENZYMES [place] CHEM PANEL eGFR 86 01/29 Result Comment: The eGFR is calculated using the CKD-EPI formula. In most young, healthy individuals the eGFR will be >90 mL/ min/1.73m2. The eGFR declines with age. An eGFR of 60-89 may be normal in mL/min/1.2016 some populations, particularly the elderly, for whom the CKD-EPI formula has not been extensively validated. Use of the eGFR is not recommended in the following populations: [address] Individuals with unstable creatinine concentrations, including patients and those with serious co-morbid conditions. Patients with extremes in muscle mass or diet. The data above are obtained from the National Kidney Disease Education Program (NKDEP) which additionally recommends that when the eGFR is used in patients with extremes of body mass index for purposes of drug dosing, the eGFR should be multiplied by the estimated BMI. CHEM PANEL Total 8.1 g/dL 6.4 - 8.4 01/29 [place] CHEM PANEL CO2 31 meq/L 24 - 32 01/29 [place] CHEM PANEL Calcium Lvl 8.9 mg/dL 8.5 - 10.5 01/29 [place] CHEM PANEL Bili Total 0.4 mg/dL 0.2 - 1.3 01/29 [place] CHEM PANEL ASPARTATE 11 unit/L 0 - 37 01/29 [place] CHEM PANEL AGAP 9.9 meq/L 10.0 - 01/29 MH 20.0 [place] CHEM PANEL B/C Ratio 15 6 - 25 01/29 [place] CHEM PANEL Globulin 4.1 g/dL 2.7 - 4.2 01/29 [place] CHEM PANEL A/G Ratio 1.0 0.7 - 1.6 01/29 [place] CHEM PANEL Chloride Lvl 97 meq/L 95 - 109 01/29 [place] CHEM PANEL ALANINE 22 unit/L 0 - 65 01/29 AMINOTRANS [place] RASE CHEM PANEL Alk Phos 121 unit/L 39 - 136 01/29 [place] CHEM PANEL Albumin Lvl 4.0 g/dL 3.5 - 5.0 01/29 [place] CHEM PANEL Glucose Lvl 368 mg/dL 70 - 99 12 [place] CHEM PANEL Sodium Lvl 133 meq/L 135 - 145 12 [place] CHEM PANEL Creatinine 1.00 mg/dL 0.50 - 01/29 MH Lvl 1.40 [place] CHEM PANEL BUN 15 mg/dL 7 - 22 01/29 [place] CHEM PANEL Potassium 4.9 meq/L 3.5 - 5.1 01/29 MH Lvl /2015 [place] HEMATOLOGY Segs 75.5 % 45.0 - 12 MH 75.0 [place] HEMATOLOGY Lymphocytes 16.0 % 20.0 - 12 MH 40.0 [place] HEMATOLOGY Eosinophils 0.2 K/CMM 0.0 - 0.5 01/29 MH # /2015 [place] HEMATOLOGY Monocytes 5.5 % 2.0 - 12.0 01/29 [place] HEMATOLOGY Basophils 0.4 % 0.0 - 1.0 01/29 [place] HEMATOLOGY Eosinophils 2.6 % 0.0 - 4.0 01/29 [place] HEMATOLOGY Segs-Bands # 5.9 K/CMM 1.5 - 8.1 01/29 [place] HEMATOLOGY Monocytes # 0.4 K/CMM 0.0 - 0.8 01/29 [place] HEMATOLOGY Lymphocytes 1.3 K/CMM 1.0 - 5.5 01/29 MH # [place] HEMATOLOGY MCV 85.4 fL 80.0 - 01/29 MH 94.0 [place] HEMATOLOGY Hct 37.4 % 42.0 - 01/29 MH 54.0 [place] HEMATOLOGY MCH 29.5 pg 27.0 - 01/29 MH 31.0 [place] HEMATOLOGY MCHC 34.6 g/dL 32.0 - 01/29 MH 36.0 [place] HEMATOLOGY Platelet 203 K/CMM 133 - 450 01/29 [place] HEMATOLOGY RDW 13.1 % 11.5 - 01/29 MH 14. [place] HEMATOLOGY MPV 8.5 fL 7.4 - 10.4 01/29 [place] HEMATOLOGY RBC X 10x6 4.38 M/CMM 4.70 - 01/29 MH 6.10 [place] HEMATOLOGY Hgb 12.9 g/dL 14.0 - 01/29 18.0 [place] HEMATOLOGY WBC X 10x3 7.8 K/CMM 3.7 - 10.4 01/29 [place] Brain wo Brain wo CT BRAIN WITHOUT CONTRAST 01/29 [facility] contrast CT contrast CT /2015 [place] INDICATION: Dizziness, history of stroke, Ataxia DLP: [id number] Read by: Magdy Juárez MD Dictated Date/time: 01/30/16 17:39 Electronically Signed by: Magdy Juárez MD 01/30/16 17:40 FINAL REPORT COMPARISON: None DISCUSSION: There are generalized involutional changes of the brain and microangiopathic changes of the white matter. There is no evidence of acute vascular insults, space occupying lesions, hemorrhage, hydrocephal us, midline shift, or extra-axial fluid collections. The calvarium is intact. IMPRESSION: Chronic age-related changes of the brain. No acute intracranial abnormalities are visualized. SL:16 Chest 1view Chest 1view Portable chest: The aorta is tortuous. The cardiac silhouette and pulmonary vasculature are within normal limits. The lungs and pleural spaces are clear. There are no acute osseous abnormalities.. 01/29 - [facility] DX DX [facility] IMPRESSION: Read by: Suhail Quick MD Dictated Date/time: 01/30/16 12:22 Electronically Signed by: Shuail Quick MD 01/30/16 12:22 FINAL REPORT No acute radiographic abnormality in the chest. [id number] Vital Signs Vital Sign Value Date Comments Source Temperature Oral (F) 98.3 F 02/20/2016 [facility] Respitory Rate 18 02/20/2016 [facility] Heart Rate 99 02/20/2016 [facility] Weight 83.636 02/20/2016 [facility] BMI Calculated 25.01 02/20/2016 [facility] Height 182.88 cm 02/20/2016 [facility] Systolic (mm Hg) 180 02/20/2016 [facility] Diastolic (mm Hg) 100 02/20/2016 [facility] Systolic (mm Hg) 138 01/31/2016 [facility] Diastolic (mm Hg) 87 01/31/2016 [facility] Respitory Rate 16 01/31/2016 [facility] Heart Rate 82 01/31/2016 [facility] Temperature Oral (F) 97.9 F 01/31/2016 [facility] Heart Rate 89 01/31/2016 [facility] Respitory Rate 16 01/31/2016 [facility] Systolic (mm Hg) 137 01/31/2016 [facility] Diastolic (mm Hg) 82 01/31/2016 [facility] Temperature Oral (F) 98.0 F 01/31/2016 [facility] Heart Rate 86 01/31/2016 [facility] Temperature Oral (F) 98.2 F 01/31/2016 [facility] Systolic (mm Hg) 154 01/31/2016 [facility] Diastolic (mm Hg) 90 01/31/2016 [facility] Respitory Rate 16 01/31/2016 [facility] Weight 82.727 01/30/2016 [facility] Height 182.88 cm 01/30/2016 [facility] BMI Calculated 24.74 01/30/2016 [facility] Encounters Location Location Encounter Encounter Reason Attending ADM DC Status Source Details Type Number For Provider Date Date Visit [facility] [id number] Rachid 01/29 01/30 Sarthak Sánchez /2015 [facility] [id number] [place] 02/19 02/19 Sarthak De La Cruz /2015 [facility] Procedures Procedure Code Date Perfomer Comments Source
--- OUTSIDE RECORDS SUMMARY | 2018-06-20 16:11 | XMS REPORT ---
:1960 [facility] Address [address] [place] [address] [address] [place] [address] Care Team Providers Name Role Phone Unavailable Unavailable Unavailable Problems This patient has no known problems. Allergies, Adverse Reactions, Alerts This patient has no known allergies or adverse reactions. Medications This patient has no known medications.
--- OUTSIDE RECORDS SUMMARY | 2018-06-20 16:11 | XMS REPORT | Summary of Care ---
:[address] [facility] Address [address] [place] [address]- Encounter HQ Encntr_aliroma(FIN) [id number] Date(s): 02/19/16 - 02/19/[address] [phone] Discharge Disposition: Elopement Attending Physician: Gustabo De La Cruz MD Vital Signs Most recent to oldest [Reference Range]: 1 Height 182.88 cm (02/19/16 6:55 PM) Temperature Oral [96.4-99.1 DegF] 98.3 DegF (02/19/16 6:55 PM) Blood Pressure [90-140/60-90 mmHg] 180/100 mmHg *HI* (02/19/16 6:55 PM) Respiratory Rate [14-20 BRMIN] 18 BRMIN (02/19/16 6:55 PM) Peripheral Pulse Rate [60-100 bpm] 99 bpm (02/19/16 6:55 PM) Weight 83.636 kg (02/19/16 6:55 PM) Body Mass Index 25.01 m2 (02/19/16 6:55 PM) Problem List Condition Effective Dates Status Health Status Informant Stroke(Confirmed) Resolved Diabetes(Confirmed) Resolved Hypertension(Confirmed) Resolved Allergies, Adverse Reactions, Alerts Substance Reaction Severity Status NKDA Active Medications No data available for this section Results No data available for this section Immunizations No data available for this section Procedures No data available for this section Social History Social History Type Response Smoking Status Never smoker; Exposure to Tobacco Smoke None; Cigarette Smoking Last 365 Days No; Reg Smoking Cessation Counseling No Assessment and Plan No data available for this section
[2018-06-20] MEDS ORDERED: NA CHLORIDE 0.9% 1,000 ML ONE (17:11)
[2018-06-20] MEDS ORDERED: TETANUS & DIPHTHERIA TOX,ADULT 0.5 ML VIAL ONE (17:11)
[2018-06-20 17:26] LABS: Absolute Monocytes 0.9 K/uL (0.1-1.3); Absolute Neutrophil 9.3 K/uL (1.8-8.0); Basophils % 0.2 % (0-1.3); Eosinophils % 1.2 % (0-4.4); Hematocrit 28.1 % (39.6-49.0); Lymphocytes % 8.8 % (15.3-44.8); Monocytes % 7.8 % (3.3-12.3); RBC Red Blood Cell Count 3.32 M/uL (4.33-5.43)
[2018-06-20 17:35] LABS: Protime INR 1.05
[2018-06-20 17:45] LABS: Albumin 3.1 g/dL (3.4-5.0); Bilirubin Direct 0.1 mg/dL (0-0.2); Bilirubin Total 0.5 mg/dL (0.2-1.0); Potassium 4.3 mmol/L (3.5-5.1); Protein, Total 7.2 g/dL (6.4-8.2)
--- NOTE | 2018-06-20 17:50 | RAD REPORT ---
EXAM DESCRIPTION: RAD - Foot Right 3 View - 06/20/2018 5:37 pm CLINICAL HISTORY: 4th right toe diabetic foot wound;Pain;Swelling COMPARISON: No comparisons FINDINGS: Oblique fracture is seen involving the proximal phalanx of the fourth toe. A significant a mount of soft tissue swelling is seen affecting the fourth toe and extending along the dorsum of the forefoot.
--- NOTE | 2018-06-20 18:13 | RAD REPORT ---
EXAM DESCRIPTION: US - Extremity Venous Uni Ltd - 06/20/2018 6:01 pm CLINICAL HISTORY: PAIN Leg swelling and edema. COMPARISON: <Comparisons> FINDINGS: Right lower extremity venous system was interrogated with Doppler technique. Normal flow, compressibility and augmentation was noted. There is no DVT present. IMPRESSION: No evidence of right lower extremity deep venous thrombosis.
[2018-06-20] MEDS ORDERED: VANCOMYCIN/NS 1 gm 1 GM/250 ML BAG IV SCH (18:15)
[2018-06-20] MEDS ORDERED: Levofloxacin500mg IV 500 MG/100 ML BAG IV ONE (18:19)
--- NOTE | 2018-06-20 18:24 | ER ---
Nurse's Notes [facility] Name: Duane Zuñiga Age: 57 yrs Sex: Male : 1960 Arrival Date: 06/20/2018 Time: 16:10 Bed 18 Private MD: Diagnosis: Cellulitis of right toe-4th;Nondisplaced fracture of proximal phalanx of right lesser toe(s)-pathologic;Diabetes mellitus due to underlying condition with foot ulcer Presentation: 06/20 16:15 Presenting complaint: Patient states: redness and pain to right 3 lateral toes with la1 drainage. Transition of care: patient was not received from another setting of care. Onset of symptoms was June 20, 2018. Risk Assessment: Do you want to hurt yourself or someone else? Patient reports no desire to harm self or others. Initial Sepsis Screen: Does the patient meet any 2 criteria? No. Patient's initial sepsis screen is negative. Does the patient have a suspected source of infection? No. Patient's initial sepsis screen is negative. Care prior to arrival: None. 16:15 Method Of Arrival: Ambulatory la1 16:15 Acuity: PADMINI 3 la1 Historical: - Allergies: 16:16 No Known Allergies; la1 - Home Meds: 17:48 Metformin Oral [Active]; Levemir 100 unit/mL subcutaneous soln [Active]; clopidogrel 75 aj mg oral tab 1 tab once daily [Active]; Januvia oral oral [Active]; omeprazole Oral [Active]; atorvastatin oral oral [Active]; Metoprolol Tartrate Oral [Active]; Clonidine Oral [Active]; amlodipine oral [Active]; Lexapro Oral [Active]; levothyroxine oral [Active]; Baclofen Oral [Active]; Ondansetron Oral [Active]; - PMHx: 16:16 Diabetes - NIDDM; Hypertension; CVA; la1 - PSHx: 16:16 None; la1 - Immunization history:: Adult Immunizations up to date. - Social history:: Smoking status: Patient/guardian denies using tobacco. - Ebola Screening: : No symptoms or risks identified at this time. Screenin:00 Abuse screen: Denies threats or abuse. Nutritional screening: No deficits noted. em Tuberculosis screening: No symptoms or risk factors identified. Fall Risk None identified. Assessment: 17:00 General: Appears in no apparent distress. comfortable, Behavior is calm, cooperative, em Reports fever for > 3 days. Pain: Denies pain. Neuro: Level of Consciousness is awake, alert, obeys commands, Oriented to person, place, time, situation. Cardiovascular: Capillary refill < 3 seconds Patient's skin is warm and dry. Respiratory: Airway is patent Respiratory effort is even, unlabored, Respiratory pattern is regular, symmetrical. Derm: Skin is red, Skin temperature is warm Wound noted right fourth toe. Musculoskeletal: Capillary refill < 3 seconds, Range of motion: intact in all extremities. 18:00 Reassessment: Patient appears in no apparent distress at this time. Patient and/or em family updated on plan of care and expected duration. Pain level reassessed. Patient is alert, oriented x 3, equal unlabored respirations, skin warm/dry/pink. pending admission. 18:53 Reassessment: Dr. Robles at bedside. em 19:05 General: Appears in no apparent distress. comfortable, Behavior is calm, cooperative. rr5 Neuro: Level of Consciousness is awake, alert, obeys commands, Oriented to person, place, time, situation. Cardiovascular: Capillary refill < 3 seconds Patient's skin is warm and dry. Respiratory: Airway is patent Respiratory effort is even, unlabored, Respiratory pattern is regular, symmetrical. Derm: Skin is red, Skin temperature is warm Wound noted diabetic wound at right fourth toe. 19:05 Reassessment: dr. robles at bedside examining the patient. rr5 Vital Signs: 16:16 BP 119 / 78; Pulse 95; Resp 16; Temp 97.4; Pulse Ox 98% on R/A; Weight 82.55 kg; Height la1 6 ft. 2 in. (187.96 cm); 17:20 BP 155 / 81; Pulse 96; Resp 18; Pulse Ox 99% on R/A; Pain 0/10; em 18:15 BP 156 / 82; Pulse 98; Resp 17; Pulse Ox 96% on R/A; em 19:00 BP 151 / 85; Pulse 95; Resp 16; Pulse Ox 98% ; rr5 20:00 BP 156 / 80; Pulse 95; Resp 17; Temp 99.1; Pulse Ox 98% on R/A; rr5 16:16 Body Mass Index 23.37 (82.55 kg, 187.96 cm) la1 ED Course: 16:10 Patient arrived in ED. as 16:16 Triage completed. la1 16:16 Arm band placed on right wrist. la1 16:17 Everton Finch NP is PHCP. pm1 16:17 Brandan Benz MD is Attending Physician. pm1 16:23 Luca Solomon LVN is Primary Nurse. em 17:00 Patient has correct armband on for positive identification. Bed in low position. Call em light in reach. Adult w/ patient. Placed in gown. Pulse ox on. NIBP on. 17:10 Inserted saline lock: 20 gauge in right antecubital area, using aseptic technique. em Blood collected. 17:10 Initial lab(s) drawn, by me, sent to lab. First set of blood cultures drawn by me. em 17:37 X-ray completed. Portable x-ray completed in exam room. Patient tolerated procedure la2 well. 17:37 Foot Right 3 View XRAY In Process Unspecified. EDMS 17:58 Ultrasound completed. Patient tolerated well. sg3 18:01 Extremity Venous Uni Ltd US In Process Unspecified. EDMS 18:22 Rocio Robles MD is Hospitalizing Provider. pm1 19:30 Irrigation of diabetic wound right 4th toe on right foot right fourth toe irrigated rr5 with normal saline Hibiclens solution Patient tolerated well. 19:30 Wound culture swab sent to lab. rr5 19:35 Ortho shoe applied to right foot. rr5 19:46 No provider procedures requiring assistance completed. Patient admitted, IV remains in rr5 place. intact. Administered Medications: 17:05 Drug: NS 0.9% 1000 ml Route: IV; Rate: 1000 ml; Site: right antecubital; em 18:38 Follow up: IV Status: Completed infusion; IV Intake: 1000ml em 17:05 Drug: Tetanus-Diphtheria Toxoid Adult 0.5 ml {Research Professor: XDC. Exp: em 04/08/2020. Lot #: [id number]. } Route: IM; Site: right deltoid; 17:49 Follow up: Response: No adverse reaction em 18:18 Drug: LevaQUIN 500 mg Volume: 100 ml; Route: IVPB; Infused Over: 60 mins; Site: right em antecubital; 19:20 Follow up: Response: No adverse reaction; IV Status: Completed infusion; IV Intake: rr5 100ml 19:25 Drug: vancoMYCIN 1 grams Route: IVPB; Infused Over: 2 hrs; Site: right antecubital; rr5 19:55 Follow up: Response: No adverse reaction; IV Status: Infusion continued upon admission; rr5 IV Intake: 65ml Intake: 18:38 IV: 1000ml; Total: 1000ml. em 19:20 IV: 100ml; Total: 1100ml. rr5 19:55 IV: 65ml; Total: 1165ml. rr5 Outcome: 18:23 Decision to Hospitalize by Provider. pm1 20:00 Admitted to Med/surg accompanied by tech, via wheelchair, room 224, with chart, Report rr5 called to awilda 20:00 Condition: stable 20:00 Instructed on the need for admit. rr5 20:25 Patient left the ED. rr5 Signatures: Dispatcher [employer] Elba Nails RN RN aj Munoz, Edgar, LOG PREPARER LOG PREPARER Ayla Clayton Lee, RN RN la1 Everton Finch, SARAH MOLD CAR PUSHER pm1 Radha Vazquez la2 Aline Bosch 3 Eduin Valenzuela, RN RN rr5
--- NOTE | 2018-06-20 18:24 | EDPHYS ---
Physician Documentation [facility] Name: Duane Zuñiga Age: 57 yrs Sex: Male : 1960 Arrival Date: 06/20/2018 Time: 16:10 Bed 18 Private MD: ED Physician Brandan Benz HPI: 06/20 16:50 This 57 yrs old Male presents to ER via Ambulatory with complaints of 4th pm1 Right Toe Infection. 16:50 The patient presents with pain, swelling, wounds. The complaints affect the right pm1 fourth toe. Context: The problem was sustained at home, resulted from blister that was present for 2 weeks, the patient is able to ambulate. Onset: The symptoms/episode began/occurred and became worse yesterday. Modifying factors: The symptoms are alleviated by nothing, the symptoms are aggravated by nothing. Associated signs and symptoms: Pertinent positives: chills, Pertinent negatives: numbness, tingling, patient has neuropathy. Severity of symptoms: in the emergency department the symptoms are actually worse. The patient has not recently seen a physician, has an appointment scheduled, Dr. Aguero tomorrow. Historical: - Allergies: 16:16 No Known Allergies; la1 - Home Meds: 17:48 Metformin Oral [Active]; Levemir 100 unit/mL subcutaneous soln [Active]; clopidogrel 75 aj mg oral tab 1 tab once daily [Active]; Januvia oral oral [Active]; omeprazole Oral [Active]; atorvastatin oral oral [Active]; Metoprolol Tartrate Oral [Active]; Clonidine Oral [Active]; amlodipine oral [Active]; Lexapro Oral [Active]; levothyroxine oral [Active]; Baclofen Oral [Active]; Ondansetron Oral [Active]; - PMHx: 16:16 Diabetes - NIDDM; Hypertension; CVA; la1 - PSHx: 16:16 None; la1 - Immunization history:: Adult Immunizations up to date. - Social history:: Smoking status: Patient/guardian denies using tobacco. - Ebola Screening: : No symptoms or risks identified at this time. ROS: 17:08 MS/extremity: Positive for pain, swelling, of the right fourth toe, Negative for pm1 deformity. 17:08 Eyes: Negative for injury, pain, redness, and discharge, ENT: Negative for injury, pain, and discharge, Neck: Negative for injury, pain, and swelling, Cardiovascular: Negative for chest pain, palpitations, and edema, Respiratory: Negative for shortness of breath, cough, wheezing, and pleuritic chest pain, Abdomen/GI: Negative for abdominal pain, nausea, vomiting, diarrhea, and constipation, Back: Negative for injury and pain, : Negative for injury, bleeding, discharge, and swelling, MS/Extremity: Negative for injury and deformity. 17:08 Neuro: Negative for headache, weakness, numbness, tingling, and seizure. 17:08 Constitutional: Positive for chills, Negative for body aches, poor PO intake. 17:08 Skin: Positive for discoloration, swelling, of the right fourth toe, discharge. Exam: 17:08 Constitutional: This is a well developed, well nourished patient who is awake, alert, pm1 and in no acute distress. Head/Face: Normocephalic, atraumatic. Eyes: Pupils equal round and reactive to light, extra-ocular motions intact. Lids and lashes normal. Conjunctiva and sclera are non-icteric and not injected. Cornea within normal limits. Periorbital areas with no swelling, redness, or edema. ENT: Nares patent. No nasal discharge, no septal abnormalities noted. Tympanic membranes are normal and external auditory canals are clear. Oropharynx with no redness, swelling, or masses, exudates, or evidence of obstruction, uvula midline. Mucous membranes moist. Neck: Trachea midline, no thyromegaly or masses palpated, and no cervical lymphadenopathy. Supple, full range of motion without nuchal rigidity, or vertebral point tenderness. No Meningismus. Chest/axilla: Normal chest wall appearance and motion. Nontender with no deformity. No lesions are appreciated. Cardiovascular: Regular rate and rhythm with a normal S1 and S2. No gallops, murmurs, or rubs. Normal PMI, no JVD. No pulse deficits. Respiratory: Lungs have equal breath sounds bilaterally, clear to auscultation and percussion. No rales, rhonchi or wheezes noted. No increased work of breathing, no retractions or nasal flaring. Abdomen/GI: Soft, non-tender, with normal bowel sounds. No distension or tympany. No guarding or rebound. No evidence of tenderness throughout. Back: No spinal tenderness. No costovertebral tenderness. Full range of motion. 17:08 MS/ Extremity: Pulses equal, no cyanosis. Neurovascular intact. Full, normal range of motion. 17:08 Skin: Appearance: normal except for affected area, abscess, that is small, palmar surface of 4th right toe, cellulitis, well demarcated, on the right foot and right fourth toe. 17:08 Neuro: Orientation: is normal, Motor: is normal, moves all fours. Vital Signs: 16:16 BP 119 / 78; Pulse 95; Resp 16; Temp 97.4; Pulse Ox 98% on R/A; Weight 82.55 kg; Height la1 6 ft. 2 in. (187.96 cm); 17:20 BP 155 / 81; Pulse 96; Resp 18; Pulse Ox 99% on R/A; Pain 0/10; em 18:15 BP 156 / 82; Pulse 98; Resp 17; Pulse Ox 96% on R/A; em 19:00 BP 151 / 85; Pulse 95; Resp 16; Pulse Ox 98% ; rr5 20:00 BP 156 / 80; Pulse 95; Resp 17; Temp 99.1; Pulse Ox 98% on R/A; rr5 16:16 Body Mass Index 23.37 (82.55 kg, 187.96 cm) la1 MDM: 16:27 Patient medically screened. pm1 17:15 Data reviewed: vital signs. Data interpreted: Pulse oximetry: on room air is 98 %. pm1 Interpretation: normal. 18:05 ED course: RLE U/S negative for DVT. pm1 18:21 Counseling: I had a detailed discussion with the patient and/or guardian regarding: the pm1 historical points, exam findings, and any diagnostic results supporting the discharge/admit diagnosis, lab results, radiology results, the need for further work-up and treatment in the hospital. 18:23 Physician consultation: Rocio Robles MD was called at 18:23, was contacted at 18:23, pm1 regarding admission, patient's condition, and will see patient. 06/20 16:30 Order name: Procalcitonin; Complete Time: 18:18 pm1 06/20 16:30 Order name: Lactate; Complete Time: 17:45 pm1 06/20 16:30 Order name: CBC with Diff; Complete Time: 17:38 pm1 06/20 16:30 Order name: BMP; Complete Time: 17:49 pm1 06/20 16:30 Order name: Blood Culture Adult (2) pm1 06/20 16:30 Order name: LFT's; Complete Time: 17:49 pm1 06/20 16:30 Order name: Foot Right 3 View XRAY; Complete Time: 17:50 pm1 06/20 16:30 Order name: Extremity Venous Uni Ltd US; Complete Time: 18:18 pm1 06/20 16:30 Order name: PT-INR; Complete Time: 17:50 pm1 06/20 19:55 Order name: Wound Culture rr5 06/20 20:02 Order name: Wound Culture EDMS 06/20 16:30 Order name: IV Saline Lock; Complete Time: 17:20 pm1 06/20 19:07 Order name: Post-op Orthopedic Shoe; Complete Time: 19:43 pm1 Administered Medications: 17:05 Drug: NS 0.9% 1000 ml Route: IV; Rate: 1000 ml; Site: right antecubital; em 18:38 Follow up: IV Status: Completed infusion; IV Intake: 1000ml em 17:05 Drug: Tetanus-Diphtheria Toxoid Adult 0.5 ml {Box Attacher: [employer]. Exp: em 04/08/2020. Lot #: [id number]. } Route: IM; Site: right deltoid; 17:49 Follow up: Response: No adverse reaction em 18:18 Drug: LevaQUIN 500 mg Volume: 100 ml; Route: IVPB; Infused Over: 60 mins; Site: right em antecubital; 19:20 Follow up: Response: No adverse reaction; IV Status: Completed infusion; IV Intake: rr5 100ml 19:25 Drug: vancoMYCIN 1 grams Route: IVPB; Infused Over: 2 hrs; Site: right antecubital; rr5 19:55 Follow up: Response: No adverse reaction; IV Status: Infusion continued upon admission; rr5 IV Intake: 65ml Disposition: 06/21 15:17 Co-signature as Attending Physician, Brandan Benz MD. rn Disposition: 06/20/18 18:23 Hospitalization ordered by Rocio Robles for Inpatient Admission. Preliminary diagnosis are Cellulitis of right toe - 4th, Nondisplaced fracture of proximal phalanx of right lesser toe(s) - pathologic, Diabetes mellitus due to underlying condition with foot ulcer. - Bed requested for Telemetry/MedSurg (Inpatient). - Status is Inpatient Admission. rr5 - Condition is Stable. - Problem is new. - Symptoms have improved. UTI on Admission? No Signatures: Dispatcher [employer] Shanti Souza RN RN dw Myers, Amanda RN RENZO aj Luca Solomon, MASTER RIGGER MASTER RIGGER em Aby Delgado RN RN iw Brandan Benz MD MD rn Attema, Lee RN RN la1 Everton Finch, OIL WELL DRILLER OIL WELL DRILLER pm1 Eduin Valenzuela RN RN rr5 Corrections: (The following items were deleted from the chart) 06/20 18:46 18:23 Hospitalization Ordered by Rocio Robles MD for Inpatient Admission. Preliminary dw diagnosis is Cellulitis of right toe - 4th; Nondisplaced fracture of proximal phalanx of right lesser toe(s) - pathologic; Diabetes mellitus due to underlying condition with foot ulcer. Bed requested for Telemetry/MedSurg (Inpatient). Status is Inpatient Admission. Condition is Stable. Problem is new. Symptoms have improved. UTI on Admission? No. pm1 18:55 18:46 06/20/2018 18:23 Hospitalization Ordered by Rocio Robles MD for Inpatient iw Admission. Preliminary diagnosis is Cellulitis of right toe - 4th; Nondisplaced fracture of proximal phalanx of right lesser toe(s) - pathologic; Diabetes mellitus due to underlying condition with foot ulcer. Bed requested for Telemetry/MedSurg (Inpatient). Status is Inpatient Admission. Condition is Stable. Problem is new. Symptoms have improved. UTI on Admission? No. dw 20:25 18:55 06/20/2018 18:23 Hospitalization Ordered by Rocio Robles MD for Inpatient rr5 Admission. Preliminary diagnosis is Cellulitis of right toe - 4th; Nondisplaced fracture of proximal phalanx of right lesser toe(s) - pathologic; Diabetes mellitus due to underlying condition with foot ulcer. Bed requested for Telemetry/MedSurg (Inpatient). Status is Inpatient Admission. Condition is Stable. Problem is new. Symptoms have improved. UTI on Admission? No. iw
--- NOTE | 2018-06-20 18:41 | P.HP ---
Certification for Inpatient Patient admitted to: Inpatient With expected LOS: >2 Midnights Practitioner: I am a practitioner with admitting privileges, knowledge of patient current condition, hospital course, and medical plan of care. Services: Services provided to patient in accordance with Admission requirements found in Title 42 Section 412.3 of the Code of Federal Regulations Patient History Date of Service: 06/20/18 Reason for admission: Right 4th toe infection History of Present Illness: This is a 57 yr old male with a past medical history of Diabetes mellitus, HTN, HLD and Hx of CVA who presented with a right 4th toe cellulitis and abscess. Patient states that area started with a blister 2 weeks ago, located on the 4th toe. Over the past 2 days, the size has changed significantly and it has gotten significantly worse. He is able to walk on it. He states that he may have hit his foot sometimes at night and not be sure about it. He does have a hx of neuropathy and therefore may not have felt it. He denies any fevers, chills. Due to the proggressive nature of the area and pain, patient came to the ER. In the ER, he was hemodynamically stable with BP of 117/79, HR of 95, RR of 16. He was afebrile with a temp of 97.4 and satting 98% on RA. His labs were remarkable for sodium level of 132 (low), and a creatinine of 1.49. Otherwise, labs were unremarkable. His foot x-ray was positive for an oblique fracture of the proximal phalanx of the 4th toe. Venous doppler of right LE was negative for a DVT. At the time of my exam, he was AAOx3, in no acute distress and he was hemodynamically stable. He was admitted for IV antibiotics. Home medications list reviewed: Yes - Past Medical/Surgical History Diabetic: Yes -: HTN -: HLD -: Hx of CVA -: DM2 - Social History Smoking Status: Never smoker Review of Systems 10-point ROS is otherwise unremarkable Physical Examination - Vital Signs Temperature: 97.4 F Blood Pressure: 119/78 Pulse: 95 Respirations: 16 Pulse Ox (%): 98 - Physical Exam General: Alert, In no apparent distress, Oriented x3 HEENT: Atraumatic, PERRLA, Mucous membr. moist/pink, EOMI, Sclerae nonicteric Neck: Supple, 2+ carotid pulse no bruit, No LAD, Without JVD or thyroid abnormality Respiratory: Clear to auscultation bilaterally, Normal air movement Cardiovascular: Regular rate/rhythm, Normal S1 S2 Gastrointestinal: Normal bowel sounds, No tenderness Musculoskeletal: No tenderness, Swelling (Right LE swelling, compared to left LE. ), Erythema (right 4th toe) Integumentary: Skin breakdown, Skin lesion, Tenderness/swelling (right 4th toe, base w/ purulent drainage; ) Neurological: Normal gait, Normal speech, Normal strength at 5/5 x4 extr, Normal tone, Normal affect Lymphatics: No axilla or inguinal lymphadenopathy - Studies Laboratory Data (last 24 hrs) 06/20/18 17:10: PT 12.4, INR 1.05 06/20/18 17:10: Sodium 132 L, Potassium 4.3, BUN 18, Creatinine 1.49 H, Glucose 325 H, Total Bilirubin 0.5, AST 11 L, ALT 13, Alkaline Phosphatase 111 06/20/18 17:10: WBC 11.3 H, Hgb 9.7 L, Hct 28.1 L, Plt Count 172 Assessment and Plan - Problems (Diagnosis) (1) Cellulitis of right toe Current Visit: Yes Status: Acute Plan: Start IV antibiotics with vancomycin and levaquin Keep wound clean Wound cultures ordered May consult ID if needed (2) Open toe wound Current Visit: Yes Status: Acute Plan: s/p tetanus vaccine in ER wound care/cleaning Qualifiers: Encounter type: initial encounter Qualified Code(s): S91.109A - Unspecified open wound of unspecified toe(s) without damage to nail, initial encounter (3) Hyponatremia Current Visit: Yes Status: Acute (4) Diabetes mellitus Current Visit: Yes Status: Chronic Qualifiers: Diabetes mellitus type: type 2 Diabetes mellitus residential insulin use: with terminal gauger use Diabetes mellitus complication status: with skin complications (5) Phalanx fracture, foot Current Visit: Yes Status: Acute Plan: Evident on x-ray, could be pathological due to osteoporosis. offload foot with boot May consult ortho if needed Qualifiers: Encounter type: initial encounter Toe: lesser toe Fracture type: closed Phalanx: proximal Fracture alignment: nondisplaced Laterality: right Qualified Code(s): S92.514A - Nondisplaced fracture of proximal phalanx of right lesser toe(s), initial encounter for closed fracture (6) Hypertension Current Visit: No Status: Chronic Plan: Stable, continue home medications Qualifiers: Hypertension type: essential hypertension Qualified Code(s): I10 - Essential (primary) hypertension (7) History of CVA (cerebrovascular accident) Current Visit: No Status: Chronic Plan: Stable, continue home medications (8) TARUN (acute kidney injury) Current Visit: Yes Status: Acute (9) Nausea & vomiting Current Visit: Yes Status: Chronic Plan: Chronic Nausea/vomiting after his stroke Zofran prn nausea Qualifiers: Vomiting type: unspecified Vomiting Intractability: intractable Qualified Code(s): R11.2 - Nausea with vomiting, unspecified - Plan DVT Prophylaxis: Lovenox GI prophylaxis: None Diet: Diabetic Disposition: Admit to floor, IV antibiotics. Pending symptomatic improvement. - Advance Directives Does patient have a Living Will: No Does patient have a Durable POA for Healthcare: No Time Spent Managing Pts Care (In Minutes): 55
[2018-06-20] MEDS: Levofloxacin500mg IV 500 MG/100 ML BAG IV SCH (20:01)
[2018-06-20 20:57] VITALS: BMI 25.9
[2018-06-20] MEDS: INSULIN -REGULAR HUMAN 50 UNIT/0.5 ML ML SQ SCH (21:09)
[2018-06-20] MEDS: NA CHLORIDE 0.9% 1,000 ML IV SCH (21:09)
[2018-06-20] MEDS ORDERED: VANCOMYCIN 500 MG in NA CHLORIDE 0.9% 100 ML IVPB ONE (21:15)
[2018-06-20] MEDS ORDERED: VANCOMYCIN 500 MG/VIAL ONE (22:39)
[2018-06-20] MEDS ORDERED: NA CHLORIDE 0.9% 100 ML ONE (22:46)
[2018-06-20] MEDS ORDERED: ATENOLOL 25 MG TAB PO ONE (23:11)
[2018-06-21 01:09] LABS: Urine Appearance CLEAR; Urine Bilirubin NEGATIVE (NEG); Urine Blood 1+ (NEG); Urine Color YELLOW; Urine Glucose 3+ (NEG); Urine Protein 1+ (NEG); Urine Specific Gravity 1.025 (1.005-1.030); Urine Urobilinogen 0.2 mg/dL (0.2-1.0)
[2018-06-21] MEDS ORDERED: DIPHENHYDRAMINE 25 MG TAB/CAP PO ONE ×3 (01:58→23:50)
[2018-06-21 02:24] LABS: Urine Microscopic Reflex ORDER UMIC
[2018-06-21 04:58] LABS: Urine Bacteria <20 /HPF (NONE SEEN); Urine Culture Reflex Order NOT NEEDED; Urine RBC <5 /HPF (NONE SEEN)
[2018-06-21] MEDS: ATENOLOL 25 MG TAB PO SCH (05:59)
[2018-06-21] MEDS: NA CHLORIDE 0.9% 1,000 ML IV SCH ×3 (06:01→16:01)
[2018-06-21 06:14] LABS: Absolute Lymphocytes (CBC) 0.9 K/uL (0.7-4.9); Absolute Monocytes 0.7 K/uL (0.1-1.3); Absolute Neutrophil 8.1 K/uL (1.8-8.0); Basophils % 0.3 % (0-1.3); Eosinophils % 0.3 % (0-4.4); Hematocrit 24.8 % (39.6-49.0); Lymphocytes % 8.8 % (15.3-44.8); MPV 9.2 fL (7.6-11.3); Monocytes % 7.4 % (3.3-12.3); RBC Red Blood Cell Count 2.96 M/uL (4.33-5.43)
[2018-06-21 06:47] LABS: Albumin 2.5 g/dL (3.4-5.0); Bilirubin Total 0.5 mg/dL (0.2-1.0); Phosphorus 2.5 mg/dL (2.5-4.9); Protein, Total 6.3 g/dL (6.4-8.2)
[2018-06-21 06:50] LABS: Magnesium 1.3 mg/dL (1.8-2.4)
[2018-06-21] MEDS ORDERED: Magnesium Sulfate 2gm IVPB 2 G/50 ML BAG IV ONE (08:00)
[2018-06-21] MEDS: INSULIN -REGULAR HUMAN 50 UNIT/0.5 ML ML SQ SCH ×4 (08:06→21:49)
[2018-06-21] MEDS ORDERED: ENOXAPARIN 40 MG/0.4 ML SQ SCH (09:00)
[2018-06-21] MEDS: VANCOMYCIN 1.5 GM in NA CHLORIDE 0.9% 500 ML IVPB SCH ×2 (12:38→21:50)
[2018-06-21] MEDS ORDERED: VANCOMYCIN 1.5 GM in NA CHLORIDE 0.9% 250 ML IVPB SCH (13:00)
--- NOTE | 2018-06-21 13:42 | P.PN ---
Subjective Date of Service: 06/21/18 Chief Complaint: Right 4th toe infection Subjective: Improving Patient seen and examined at bedside. No family at bedside. Chart reviewed and case discussed with nursing staff. Patient admitted for right toe cellulitis. No acute events noted overnight ox line patient reports improved pain. Still noted to have bleeding and discharge Complaints of intermittent nausea overnight Review of Systems 10-point ROS is otherwise unremarkable Physical Examination - Vital Signs Temperature: 98.1 F Blood Pressure: 180/84 Pulse: 87 Respirations: 20 Pulse Ox (%): 93 - Physical Exam General: Alert, In no apparent distress, Oriented x3 HEENT: Atraumatic, PERRLA, EOMI Neck: Supple, JVD not distended Respiratory: Clear to auscultation bilaterally, Normal air movement Cardiovascular: Regular rate/rhythm, Normal S1 S2 Gastrointestinal: Normal bowel sounds, No tenderness Musculoskeletal: No tenderness Integumentary: Skin lesion, Tenderness/swelling, Erythema (right 4th toe, base w / purulent drainage;) Neurological: Normal speech, Normal tone, Normal affect - Studies Laboratory Data (last 24 hrs) 06/20/18 17:10: PT 12.4, INR 1.05 06/20/18 17:10: Sodium 132 L, Potassium 4.3, BUN 18, Creatinine 1.49 H, Glucose 325 H, Total Bilirubin 0.5, AST 11 L, ALT 13, Alkaline Phosphatase 111 06/20/18 17:10: WBC 11.3 H, Hgb 9.7 L, Hct 28.1 L, Plt Count 172 Assessment And Plan - Current Problems (Diagnosis) (1) Cellulitis of right toe Current Visit: Yes Status: Acute Plan: Continue IV antibiotics with vancomycin and levaquin Keep wound clean Wound cultures ordered, pending May consult ID if needed (2) Open toe wound Current Visit: Yes Status: Acute Plan: s/p tetanus vaccine in ER wound care/cleaning Qualifiers: Encounter type: initial encounter Qualified Code(s): S91.109A - Unspecified open wound of unspecified toe(s) without damage to nail, initial encounter (3) Hyponatremia Current Visit: Yes Status: Acute Plan: Improved from admission. Will continue IV fluids at this time. (4) Diabetes mellitus Current Visit: No Status: Chronic Plan: Accu-Cheks and sliding scale insulin. Will continue to monitor and adjust as needed. Qualifiers: Diabetes mellitus type: type 2 Diabetes mellitus technician terminal and repeater insulin use: with technician terminal and repeater use Diabetes mellitus complication status: with skin complications (5) Phalanx fracture, foot Current Visit: Yes Status: Acute Plan: Evident on x-ray, could be pathological due to osteoporosis. offload foot with boot May consult ortho if needed Qualifiers: Encounter type: initial encounter Toe: lesser toe Fracture type: closed Phalanx: proximal Fracture alignment: nondisplaced Laterality: right Qualified Code(s): S92.514A - Nondisplaced fracture of proximal phalanx of right lesser toe(s), initial encounter for closed fracture (6) Hypertension Current Visit: No Status: Chronic Plan: Stable, continue home medications Qualifiers: Hypertension type: essential hypertension Qualified Code(s): I10 - Essential (primary) hypertension (7) History of CVA (cerebrovascular accident) Current Visit: No Status: Chronic Plan: Stable, continue home medications (8) TARUN (acute kidney injury) Current Visit: Yes Status: Acute Plan: Resolved with IV fluids (9) Nausea & vomiting Current Visit: Yes Status: Chronic Plan: Chronic Nausea/vomiting after his stroke Zofran prn nausea Qualifiers: Vomiting type: unspecified Vomiting Intractability: intractable Qualified Code(s): R11.2 - Nausea with vomiting, unspecified - Plan DVT Prophylaxis: Plavix, home medication. GI prophylaxis: Protonix, home medication Diet: Diabetic Disposition: Continue IV antibiotics. Pending symptomatic improvement. Possible discharge home in the next 24-48 hours pending clinical improvement
[2018-06-21] MEDS ORDERED: D50W 25 GM/50 ML SYRINGE IV PRN (13:50)
[2018-06-21] MEDS ORDERED: GLUCAGON 1 MG/VIAL IM PRN (13:50)
[2018-06-21] MEDS: Levofloxacin500mg IV 500 MG/100 ML BAG IV SCH (18:23)
[2018-06-21] MEDS: TRAMADOL HCL 50 MG TAB PO PRN (18:23)
[2018-06-21] MEDS: ATORVASTATIN 40 MG TAB PO SCH (21:49)
[2018-06-21] MEDS: HYDRALAZINE HCL 20 MG/ML VIAL IV PRN (21:54)
[2018-06-21] MEDS: ACETAMINOPHEN 500 MG TAB PO PRN (22:28)
[2018-06-21 23:14] LABS: Urine Appearance CLEAR; Urine Bilirubin NEGATIVE (NEG); Urine Blood 1+ (NEG); Urine Color YELLOW; Urine Glucose 3+ (NEG); Urine Protein 2+ (NEG); Urine Specific Gravity 1.025 (1.005-1.030); Urine Urobilinogen 0.2 mg/dL (0.2-1.0)
[2018-06-21 23:15] LABS: Urine Microscopic Reflex ORDER UMIC
[2018-06-21 23:29] LABS: Urine Bacteria <20 /HPF (NONE SEEN); Urine Culture Reflex Order NOT NEEDED; Urine RBC <5 /HPF (NONE SEEN)
[2018-06-22] MEDS: ATENOLOL 25 MG TAB PO SCH (05:16)
[2018-06-22] MEDS: ACETAMINOPHEN 500 MG TAB PO PRN ×2 (05:17→22:46)
[2018-06-22] MEDS: LEVOTHYROXINE SOD 0.075 MG TAB PO SCH (05:17)
[2018-06-22] MEDS: ONDANSETRON 4 MG/2 ML VIAL IV PRN (05:23)
[2018-06-22 05:49] LABS: Absolute Lymphocytes (CBC) 0.8 K/uL (0.7-4.9); Absolute Monocytes 0.6 K/uL (0.1-1.3); Absolute Neutrophil 7.6 K/uL (1.8-8.0); Basophils % 0.4 % (0-1.3); Eosinophils % 0.7 % (0-4.4); Hematocrit 26.4 % (39.6-49.0); Lymphocytes % 8.6 % (15.3-44.8); MPV 8.9 fL (7.6-11.3); Monocytes % 6.9 % (3.3-12.3); RBC Red Blood Cell Count 3.13 M/uL (4.33-5.43)
[2018-06-22 06:08] LABS: ALT/SGPT 13 U/L (12-78); AST/SGOT 9 U/L (15-37); Albumin 2.4 g/dL (3.4-5.0); Alkaline Phosphatase 101 U/L (45-117); BUN Blood Urea Nitrogen 10 mg/dL (7-18); Bicarbonate 22 mmol/L (21-32); Bilirubin Total 0.6 mg/dL (0.2-1.0); Glucose Level 214 mg/dL (74-106); Potassium 3.8 mmol/L (3.5-5.1); Protein, Total 6.4 g/dL (6.4-8.2); Sodium Level 135 mmol/L (136-145)
[2018-06-22] MEDS: INSULIN -REGULAR HUMAN 50 UNIT/0.5 ML ML SQ SCH ×4 (07:30→20:52)
[2018-06-22] MEDS ORDERED: POTASSIUM CL SA 10 MEQ TAB PO ONE (07:37)
[2018-06-22] MEDS: PANTOPRAZOLE 40MG TABLET PO SCH (08:44)
[2018-06-22] MEDS: CLOPIDOGREL 75 MG TABLET PO SCH (08:44)
[2018-06-22] MEDS: VANCOMYCIN 1.5 GM in NA CHLORIDE 0.9% 500 ML IVPB SCH ×2 (08:45→20:52)
[2018-06-22] MEDS: ESCITALOPRAM 20 MG TAB PO SCH (08:45)
[2018-06-22] MEDS: TRAMADOL HCL 50 MG TAB PO PRN ×2 (08:47→17:24)
[2018-06-22] MEDS ORDERED: HOME MED 1 EA UNK (Omeprazole [Prilosec] 40 MG) PO SCH (09:00)
--- NOTE | 2018-06-22 17:18 | P.CNS ---
Date of Consult: 06/22/18 Reason for Consult: right fourth digit wound Requesting Physician: Janel Prasad Chief Complaint: Right 4th toe infection History of Present Illness: right fourth digit wound present x 3 weeks. Patient treated area on his own with mupirocin and soap/water. Noticed several days ago that the area increased in redness and edema Allergies No Known Allergies Allergy (Verified 06/20/18 21:44) Home Medications: Atenolol [Tenormin] 25 mg PO BID 06/21/18 Atorvastatin Calcium [Lipitor] 40 mg PO BEDTIME 06/21/18 Baclofen [Lioresal] 10 mg PO TID 06/21/18 Clopidogrel Bisulfate [Plavix] 75 mg PO DAILY 06/21/18 Escitalopram [Lexapro] 10 mg PO DAILY 06/21/18 Levothyroxine [Synthroid] 75 mcg PO DBMSO1NS 06/21/18 Metformin ER [Glucophage ER] 3 tab PO BEDTIME 06/21/18 Omeprazole [Prilosec] 40 mg PO DAILY 06/21/18 Sitagliptin Phos/Metformin HCl [Janumet 50-500 mg Tablet] 1 tab PO DAILY - Past Medical/Surgical History Diabetic: Yes -: HTN -: HLD -: Hx of CVA -: DM2 - Family History Mother Medical History: Heart disease, Hypertension, Diabetes - Social History Alcohol use: No CD- Drugs: No Caffeine use: Yes Place of Residence: Home Review of Systems 10-point ROS is otherwise unremarkable Physical Examination Temp Pulse Resp BP Pulse Ox 97.7 F 89 18 139/69 93 06/22/18 13:00 06/22/18 13:06 06/22/18 13:06 06/22/18 13:06 06/22/18 13:00 General: Alert, In no apparent distress, Oriented x3 Cardiovascular: No edema, Normal pulses Capillary refill: <2 Seconds Musculoskeletal: No clubbing, No swelling, No contractures, No erythema, No tenderness, No warmth Integumentary: Erythema, Warmth, Cyanosis, Diabetic ulcer (right fourth digit is noted to be dusky at distal aspect with gangrenous changes proximal medial. Wound noted lateral aspect of the right fourth digit that is noted to probe to bone. Tracking noted at 12:00 with purulence present. Erythema dorsal aspect of right foot demarcated with a pen and noted erythema plantar arch) Neurological: Abnormal sensation Imagings Data: xray right foot negative for osteomyelitis however noted oblique fracture of the right fourth digit proximal phalanx - Problems (1) Cellulitis of right toe Current Visit: Yes Status: Acute Plan: 1. Patient to be npo past midnight 2. Patient to have surgery tomorrow morning to include staged amputation of the right fourth digit with incision and drainage. Patient unable to have surgery this evening because he has been drinking water this afternoon and ate 10 grapes an hour before I saw him Physician Review: Patient Assessed, Agree with Above Assessment and Plan Time Spent Managing Pts care (In Minutes): 25
[2018-06-22] MEDS: Levofloxacin500mg IV 500 MG/100 ML BAG IV SCH (17:25)
[2018-06-22] MEDS ORDERED: CLONIDINE 0.2 MG/PATCH TD SCH (17:30)
[2018-06-22] MEDS: ATORVASTATIN 40 MG TAB PO SCH (20:52)
--- NOTE | 2018-06-22 20:52 | PN ---
Date of Progress Note: 06/22/2018 Subjective: The patient was seen and examined, chart reviewed and case discussed with RN and Dr. Chuy khan. The patient is still having some pain as well as worsening redness of his right foot. Medications: List reviewed. Physical Examination: Vital Signs: Temperature 97.7, heart rate 81, blood pressure 179/84, respirations 20, O2 93% on room air. General: Awake, alert, oriented x3, in some mild distress, ill-appearing male. CV: S1 and S2. Regular rate and rhythm. Peripheral pulses present. Respiratory: Moving air well bilaterally. No wheezing or stridor. No use of accessory muscles. Gastrointestinal: Abdomen is soft, nontender, nondistended. Positive bowel sounds. No guarding or rigidity. Extremities: No clubbing or cyanosis. Right lower extremity edema present. Skin: Right fourth toe erythema, infection, discoloration along with surrounding erythema of the crystal sum of the foot. Neuro: Cranial nerves 2 through 12 intact grossly. No focal neurological deficits. Speech is alena l. Decreased sensation to light touch, bilateral lower extremities. Laboratory Data: Sodium 135, potassium 3.8, chloride 101, CO2 22, BUN 10, creatinine 0.79, glucose 2 14, calcium 8.1, albumin 2.4. WBC 9.1, H and H 9.2 and 26.4, platelets 186, neutrophils 83%. Blood cultures, no growth to date. Wound cultures pending. Preliminary growing out 3+ Staph coagulase pos itive. Assessment: A 57-year-old male with: 1.Cellulitis of the right foot, likely initiated from fourth toe infection. X-ray does not show any free air. DVT was ruled out by Doppler. We will continue with IV antibiotics, currently on vancomy monica and Levaquin. Wound cultures growing out coagulase positive Staph, may be MRSA, we will continue to monitor. Blood cultures, no growth to date. 2.Open toe wound. The patient received tetanus vaccine in the ER, initial encounter without damage to nail. Dr. Sweeney with Podiatry has been consulted. 3.Hyponatremia, improving. We will continue IV fluids. 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 We will adjust sliding sc rome insulin and resume home medications. 5.Fracture of the proximal phalanx of the fourth toe, proximal, nondisplaced. We will continue offl oading with fracture boot. May be pathologic. We will have Dr. Sweeney evaluate the foot. 6.Essential hypertension, stable. 7.History of cerebrovascular accident, stable. No residual weakness. Resume home medications. 8.Acute kidney injury. Creatinine was initially 1.49, now normalized. We will continue with IV flu ids, avoid NSAIDs, and continue to monitor creatinine. 9.Non-intractable nausea and vomiting, chronic after his CVA. We will continue with Zofran as luke d. 10.DVT prophylaxis with Lovenox. Plan: We will continue IV antibiotics. Have Dr. Sweeney evaluate the patient for possible debridement . Follow up on cultures. Likely has MRSA infection. May need long-term antibiotics. Discharge echo nning depending on clinical course. /JACINTO Voice ID: [id number] Report ID: [id number]
[2018-06-23] MEDS: ATENOLOL 25 MG TAB PO SCH (05:39)
[2018-06-23] MEDS: LEVOTHYROXINE SOD 0.075 MG TAB PO SCH (05:40)
[2018-06-23 06:24] LABS: Absolute Lymphocytes (CBC) 0.6 K/uL (0.7-4.9); Absolute Monocytes 0.7 K/uL (0.1-1.3); Absolute Neutrophil 6.4 K/uL (1.8-8.0); Basophils % 0.4 % (0-1.3); Eosinophils % 1.4 % (0-4.4); Hematocrit 26.1 % (39.6-49.0); Lymphocytes % 7.5 % (15.3-44.8); MPV 8.5 fL (7.6-11.3); Monocytes % 8.8 % (3.3-12.3); RBC Red Blood Cell Count 3.09 M/uL (4.33-5.43)
[2018-06-23 06:38] LABS: ALT/SGPT 13 U/L (12-78); AST/SGOT 10 U/L (15-37); Albumin 2.3 g/dL (3.4-5.0); Alkaline Phosphatase 101 U/L (45-117); BUN Blood Urea Nitrogen 8 mg/dL (7-18); Bicarbonate 23 mmol/L (21-32); Bilirubin Total 0.6 mg/dL (0.2-1.0); Glucose Level 214 mg/dL (74-106); Potassium 3.7 mmol/L (3.5-5.1); Protein, Total 6.6 g/dL (6.4-8.2); Sodium Level 135 mmol/L (136-145)
[2018-06-23] MEDS ORDERED: PROPOFOL 200 MG/20 ML VIAL IV ONE (07:03)
[2018-06-23] MEDS ORDERED: MIDAZOLAM HCL 2 MG/2 ML INJ ONE (07:03)
[2018-06-23] MEDS ORDERED: FENTANYL CITR 100 MCG/2 ML ONE (07:03)
[2018-06-23] MEDS ORDERED: LIDOCAINE 1% MPF 5 ML VIAL ONE ×2 (07:03→07:25)
[2018-06-23] MEDS ORDERED: BUPIVACAINE 0.5% PF 10 ML VIAL ONE (07:25)
[2018-06-23] MEDS ORDERED: NA CHLORIDE 0.9% 1,000 ML ONE (07:30)
[2018-06-23] MEDS ORDERED: ONDANSETRON 4 MG/2 ML VIAL ONE (07:59)
--- NOTE | 2018-06-23 08:13 | P.OP ---
Preoperative diagnosis: right fourth digit abscess with osteomyelitis Postoperative diagnosis: same Primary procedure: right fourth digit amputation Secondary procedure: incision and drainage right foot, staged, with flap formation Anesthesia: general Estimated blood loss: <20cc Specimen: bone for pathology and tissue for culture Findings: as above Operative Technique: amputation of right fourth digit with incision and drainage of right fourth interspace and flap formation for possible delayed closure. Purulence noted plantar aspect of fourth digit. No sinus tracks or purulence noted dorsally or plantarly after amputation. wound was irrigated with pulse lavage with saline/ betadine and packed with half inch iodoform and a dressing consisting of 4X4s, abd, kerlix and an tiny wrap Complications: None Transferred to: Recovery Room Condition: Good
[2018-06-23] MEDS: INSULIN -REGULAR HUMAN 50 UNIT/0.5 ML ML SQ SCH ×4 (09:02→21:25)
[2018-06-23] MEDS: VANCOMYCIN 1.5 GM in NA CHLORIDE 0.9% 500 ML IVPB SCH ×2 (09:02→21:24)
[2018-06-23] MEDS: CLOPIDOGREL 75 MG TABLET PO SCH (09:08)
[2018-06-23] MEDS: ESCITALOPRAM 20 MG TAB PO SCH (09:08)
[2018-06-23] MEDS: PANTOPRAZOLE 40MG TABLET PO SCH (09:09)
[2018-06-23] MEDS ORDERED: POTASSIUM CL SA 10 MEQ TAB PO ONE (09:21)
--- NOTE | 2018-06-23 16:33 | PN ---
Date of Progress Note: 06/23/2018 Subjective: The patient is seen and examined. Chart reviewed, and case discussed with RN. The morris ent went for right fourth toe amputation, did well postoperatively. Pain is well controlled. Medications: List reviewed. Physical Examination: Vital Signs: Temperature 97.9, heart rate 81, blood pressure 148/77, respirations 16, O2 of 93% on r oom air. General: Awake, alert, oriented x3, in some mild distress due to pain. CV: S1, S2. Regular rate and rhythm. Peripheral pulses present. Respiratory: Moving air well bilaterally. No wheezing or stridor. Gastrointestinal: Abdomen is soft, nontender, nondistended. Positive bowel sounds. Extremities: No clubbing, cyanosis, or edema. Skin: Right foot fourth toe status post amputation, bandaged, clean, dry, and intact. Neurologic: Nonfocal. The patient does have decreased sensation to light touch, lower extremities. Laboratory Data: Sodium 135, potassium 3.7, chloride 101, CO2 of 23, BUN 8, creatinine 0.81, glucose 214. Hemoglobin A1c is 11.4%. Calcium 8.3, albumin 2.3. WBC 7.8, H and H 9.1 and 26.1, platelets 193, neutrophils 81%. Right foot culture is growing out MRSA. Blood cultures, no growth to date. Assessment: A 57-year-old male with: 1.Cellulitis of the right foot, status post right fourth digit amputation, secondary to methicillin- resistant Staphylococcus aureus, sensitive to Levaquin and vancomycin. We will continue antibiotics for now. Blood culture showed no growth to date. Infectious Disease has been consulted. Appreciate Dr. Sweeney's input. 2.Open toe wound, status post tetanus vaccine in the ER, without damage to the nail, initial encount er, status post amputation. 3.Hyponatremia, improved. We will continue to monitor. 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 Continue sliding scale in sulin. Lantus has been added, 10 units. We will monitor blood glucose levels. The patient needs ti ght glycemic control to help heal the infection faster. Hemoglobin A1c is 11%. 5.Fracture of the proximal phalanx of the fourth toe, nondisplaced, status post amputation. 6.Essential hypertension, stable. 7.History of cerebrovascular accident, stable. No residual weakness. We will restart Plavix 24 jossue rs post surgery. 8.Acute kidney injury. Creatinine normalized. We will continue with IV fluids. Avoid NSAIDs and m onitor creatinine. 9.Non-intractable nausea and vomiting, chronic symptoms after the patient's cerebrovascular accident . Continue with Zofran p.r.n. 10.Deep venous thrombosis prophylaxis with SCDs. Resume Lovenox 24 hours post procedure. Plan: The patient will likely need IV antibiotics long-term. We will discuss further with Dr. Sweeney and Dr. Lee discharge planning. /JACINTO Voice ID: [id number] Report ID: [id number]
[2018-06-23] MEDS: TRAMADOL HCL 50 MG TAB PO PRN (17:30)
[2018-06-23] MEDS: Levofloxacin500mg IV 500 MG/100 ML BAG IV SCH (17:30)
--- NOTE | 2018-06-23 17:47 | CON ---
History Of Present Illness: This is a 57-year-old male who was at work, had a trauma to his foot and a fall after that from a walking board, which was slightly elevated. The patient also has significa nt history of a stroke 5 years ago with slight weakness. Denies any other problems. History of hype rtension and hypothyroidism. Nonsmoker, nondrinker. Denies any headache, nausea, vomiting, chest pa in, abdominal pain, constipation, or diarrhea. The patient had amputation of the fourth toe on the r ight foot today. Currently on IV antibiotic including Levaquin and vancomycin as the wound was growi ng MRSA. Past Medical History: As per HPI. Social History: Nonsmoker, nondrinker. Family History: Noncontributory. Medications: Vancomycin and Levaquin. Review of Systems: A 10-point review done. Allergies: NO KNOWN DRUG ALLERGIES. Physical Examination: General: This is a 57-year-old male, sitting in bed, having lunch. Vital Signs: Temperature 98, pulse 90, respiration 15, blood pressure 143/78. HEENT: Unremarkable. Neck: Supple. Lungs: Clear to auscultation. Heart: S1, S2. Regular. Abdomen: Soft, nontender. Bowel sounds present. Extremity: No edema. Surgical wound in the surgical dressing. Laboratory Data: Shows WBC 7.8 down from 11.3, hemoglobin 9.1, platelets 193. Chemistry shows sodiu m 135, potassium 3.7, chloride 101, bicarb 23, BUN 8, creatinine 0.8, glucose noted 214. Microdata s hows MRSA from the right foot wound. Assessment/plan: Right foot wound status post trauma, possible diabetic foot ulcer infected with met hicillin-resistant Staphylococcus aureus, status post amputation of fourth toe and cellulitis of righ t foot. Currently, the patient is on vancomycin and Levaquin. Continue current medication. Total c ourse of 2-3 weeks. We will follow the patient to see how his wound is improving now that the infect ed bone is out. We will continue current treatment and wound care. Thank you Dr. Sweeney and Dr. Prasad for consult. NF/MODL Voice ID: [id number] Report ID: [id number]
[2018-06-23] MEDS ORDERED: INSULIN GLARGINE 100 UNITS/ML SQ SCH (21:00)
[2018-06-23] MEDS: ATORVASTATIN 40 MG TAB PO SCH (21:24)
[2018-06-23] MEDS: HYDRALAZINE HCL 20 MG/ML VIAL IV PRN (21:24)
[2018-06-24] MEDS: TRAMADOL HCL 50 MG TAB PO PRN ×2 (05:31→19:37)
[2018-06-24] MEDS: ONDANSETRON 4 MG/2 ML VIAL IV PRN (05:31)
[2018-06-24] MEDS: LEVOTHYROXINE SOD 0.075 MG TAB PO SCH (05:31)
[2018-06-24] MEDS: ATENOLOL 25 MG TAB PO SCH (05:32)
[2018-06-24 06:31] LABS: Potassium 4.1 mmol/L (3.5-5.1)
[2018-06-24] MEDS: VANCOMYCIN 1.5 GM in NA CHLORIDE 0.9% 500 ML IVPB SCH ×2 (08:16→21:39)
[2018-06-24] MEDS: ESCITALOPRAM 20 MG TAB PO SCH (08:17)
[2018-06-24] MEDS: CLOPIDOGREL 75 MG TABLET PO SCH (08:17)
[2018-06-24] MEDS: PANTOPRAZOLE 40MG TABLET PO SCH (08:17)
[2018-06-24] MEDS: INSULIN -REGULAR HUMAN 50 UNIT/0.5 ML ML SQ SCH ×4 (08:29→21:38)
--- NOTE | 2018-06-24 08:33 | P.PN ---
Subjective Date of Service: 06/24/18 Chief Complaint: Right 4th toe infection Subjective: No C/O voiced, Improving Review of Systems 10-point ROS is otherwise unremarkable Physical Examination - Vital Signs Temperature: 98.0 F Blood Pressure: 170/70 Pulse: 94 Respirations: 18 Pulse Ox (%): 97 - Physical Exam General: Alert, In no apparent distress, Oriented x3 Cardiovascular: No edema, Normal pulses Capillary refill: <2 Seconds Musculoskeletal: No clubbing, No swelling, No contractures, No erythema, No tenderness, No warmth Integumentary: Diabetic ulcer (dressing changed at bedside. Small dusky area on lateral flap that may be nonviable. Decreased erythema to plantar and dorsal foot, granular wound base noted) Neurological: Abnormal sensation Assessment And Plan - Current Problems (Diagnosis) (1) Cellulitis of right toe Current Visit: Yes Status: Acute Plan: 1. Patient to be npo past midnight 2. Patient to have surgery tomorrow morning to include staged amputation of the right fourth digit with incision and drainage. Patient unable to have surgery this evening because he has been drinking water this afternoon and ate 10 grapes an hour before I saw him - Plan 1. continue current antibiotics 2. Pack wound bid with saline wet to dry gauze 3. NWB right foot 4. Will plan on taking patient back to the OR either tomorrow or Thursday for further irrigation and possible closure of wound Physician Review: Patient Assessed, Agree with Above Assessment and Plan
[2018-06-24] MEDS: NA CHLORIDE 0.9% 1,000 ML IV SCH (12:36)
[2018-06-24] MEDS ORDERED: BISACODYL E.C. 5 MG TAB PO ONE (15:49)
[2018-06-24] MEDS ORDERED: POLYETHYL GLY 3350 17 GM/DOSE PO PRN (15:54)
[2018-06-24] MEDS: DOCUSATE NA 100 MG CAP PO SCH ×2 (16:29→21:37)
[2018-06-24] MEDS: ACETAMINOPHEN 500 MG TAB PO PRN ×2 (16:29→22:24)
--- NOTE | 2018-06-24 16:37 | PN ---
Date of Progress Note: 06/24/2018 Subjective: The patient is seen and examined, chart reviewed, and case discussed with RN and Dr. Chuy khan. The patient tolerated surgery well yesterday. Had 4th right digit amputation. Pain is well con trolled. The patient did have some temperature spike over the past night or two. Medications: List reviewed. Objective: Vital Signs: Temperature 98, heart rate 94, blood pressure 170/70, respirations 18, O2 9 7% on room air. General: Awake, alert, oriented x3, not in any acute distress, ill-appearing male. CV: S1, S2. Regular rate and rhythm. Peripheral pulses present. Respiratory: Moving air well bilaterally. No wheezing or stridor. Gastrointestinal: Abdomen is soft, nontender, nondistended. Positive bowel sounds. Extremities: No clubbing or cyanosis. Trace right pedal edema. Neurologic: Nonfocal. The patient does have numbness and tingling of bilateral lower extremities. Skin: Right foot, bandaged 4th toe, status post amputation. Clean, dry, intact. Apparently, there were some pockets of pus seen by Dr. Sweeney, which were debrided at bedside. Laboratory Data: Sodium 133, potassium 4.1, chloride 101, CO2 22, BUN 9, creatinine 0.93, glucose 22 8, calcium 8.2. WBC pending. Blood cultures negative. Right foot wound cultures growing out MRSA. Assessment: A 57-year-old male with: 1.Cellulitis of the right foot, status post 4th digit amputations secondary to methicillin-resistant Staphylococcus aureus, sensitive to Levaquin and vancomycin. Continue antibiotics. Appreciate Dr. Sweeney and Dr. Lee's input. The patient may need repeat debridement in the morning. 2.Open toe wound, status post 4th digit amputation. 3.Hyponatremia. Sodium still low at 133. We will adjust fluids. 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 Lantus was added yesterda y. We will need to increase dose. Hemoglobin A1c is 11%. We will adjust sliding scale. 5.Fracture of proximal phalanx of the 4th toe, nondisplaced, status post amputation. 6.Essential hypertension. 7.History of cerebrovascular accident with no residual weakness. We will continue to hold Plavix du e to surgery in the morning. 8.Acute kidney injury. Creatinine has normalized. We will continue to monitor creatinine and avoid nonsteroidal anti-inflammatory drugs. 9.Non-intractable nausea and vomiting, chronic secondary to patient's cerebrovascular accident. We will continue antiemetics as needed. 10.Deep venous thrombosis prophylaxis with sequential compression devices. The patient will likely be going for procedure again in the morning, therefore we will hold Lovenox. Continue sequential com pression devices. Plan: The patient may end up requiring long-term IV antibiotics. We will discuss with ROSALES and Dr. Gabriel moore. /JACINTO Voice ID: [id number] Report ID: [id number]
[2018-06-24] MEDS: Levofloxacin500mg IV 500 MG/100 ML BAG IV SCH (17:37)
--- NOTE | 2018-06-24 20:46 | PN ---
Subjective: The patient is lying in bed. Denies any headache, nausea, vomiting, chest pain, abdomin al pain, constipation, or diarrhea. Objective: Vital Signs: Temperature 97, pulse 84, respirations 16, blood pressure 159/77. Lungs: Basal crackles. Heart: S1, S2. Regular. Abdomen: Soft, nontender. Bowel sounds present. Extremity: Foot wound noted. Laboratory Data: No new labs. No CBC. Sodium 133, potassium 4.1, chloride 101, bicarb 22, BUN 9, c reatinine 0.93, glucose 228. Micro data shows MRSA. Assessment And Plan: Status post surgical removal of the fourth toe. The patient is doing well. No leukocytosis. No fever. He has some constipation. Continue antibiotic and supportive care. Can b e switched to oral on discharge if no complication. NF/MODL Voice ID: [id number] Report ID: [id number]
[2018-06-24] MEDS ORDERED: INSULIN GLARGINE 100 UNITS/ML SQ SCH (21:00)
[2018-06-24] MEDS: ATORVASTATIN 40 MG TAB PO SCH (21:37)
[2018-06-25] MEDS: NA CHLORIDE 0.9% 1,000 ML IV SCH (03:26)
[2018-06-25] MEDS: ONDANSETRON 4 MG/2 ML VIAL IV PRN (05:15)
[2018-06-25] MEDS: LEVOTHYROXINE SOD 0.075 MG TAB PO SCH (05:20)
[2018-06-25] MEDS: ATENOLOL 25 MG TAB PO SCH (05:20)
[2018-06-25] MEDS: PANTOPRAZOLE 40MG TABLET PO SCH (07:30)
[2018-06-25] MEDS ORDERED: LIDOCAINE 1% MPF 30 ML VIAL ONE ×2 (07:35→08:17)
[2018-06-25] MEDS ORDERED: FENTANYL CITR 100 MCG/2 ML ONE (07:53)
[2018-06-25] MEDS ORDERED: PROPOFOL 200 MG/20 ML VIAL IV ONE (07:53)
[2018-06-25] MEDS ORDERED: LIDOCAINE 1% MPF 5 ML VIAL ONE (07:53)
[2018-06-25] MEDS ORDERED: MIDAZOLAM HCL 2 MG/2 ML INJ ONE (07:53)
[2018-06-25] MEDS: VANCOMYCIN 1.5 GM in NA CHLORIDE 0.9% 500 ML IVPB SCH (09:00)
[2018-06-25] MEDS: BISACODYL E.C. 5 MG TAB PO SCH (09:00)
[2018-06-25] MEDS: DOCUSATE NA 100 MG CAP PO SCH ×2 (09:00→20:36)
[2018-06-25] MEDS: ESCITALOPRAM 20 MG TAB PO SCH (09:00)
--- NOTE | 2018-06-25 09:28 | P.OP ---
Preoperative diagnosis: right foot abscess Postoperative diagnosis: same Primary procedure: right foot incision and drainage Secondary procedure: closure of wound via advancement flap right foot Anesthesia: general Estimated blood loss: <20cc Specimen: none Findings: as above Operative Technique: incision and drainage right fourth interspace. Wound noted to have a granular base with minimal nonviable tissue on the lateral flap. This was excised. Wound irrigated with saline and betadine. cellulitis decreased plantar right arch. Medial and lateral flaps advanced for wound closure and obtained with 3- 0 prolene. 1/4 inch jamison drain inserted and will be removed in 2 days Complications: None Transferred to: Recovery Room Condition: Good
[2018-06-25] MEDS ORDERED: ONDANSETRON HCL 40 MG/20 ML VIAL ONE (09:56)
[2018-06-25] MEDS: INSULIN -REGULAR HUMAN 50 UNIT/0.5 ML ML SQ SCH ×4 (09:59→20:35)
[2018-06-25] MEDS ORDERED: INSULIN -REGULAR HUMAN 50 UNIT/0.5 ML ML ONE (10:11)
--- NOTE | 2018-06-25 12:28 | RAD REPORT ---
EXAM DESCRIPTION: Roxanne Single View06/25/2018 12:19 pm CLINICAL HISTORY: Shortness of breath COMPARISON: none FINDINGS: Moderate bilateral pulmonary opacities. . The heart is mildly enlarged. Small pleural effu sions suspected IMPRESSION: Moderate bilateral pulmonary opacities probably represent pulmonary edema
[2018-06-25] MEDS: VANCOMYCIN 1.25 GM in NA CHLORIDE 0.9% 250 ML IVPB SCH ×2 (12:43→23:21)
[2018-06-25] MEDS ORDERED: FUROSEMIDE 40 MG/4 ML VIAL IV ONE (13:31)
[2018-06-25] MEDS: Levofloxacin500mg IV 500 MG/100 ML BAG IV SCH (17:04)
[2018-06-25] MEDS: HYDRALAZINE HCL 20 MG/ML VIAL IV PRN (18:05)
--- NOTE | 2018-06-25 18:29 | PN ---
Date of Progress Note: 06/25/2018 Subjective: Patient is seen and examined. Chart reviewed and case discussed with RN. The patient w ent back to the OR for I and D and closure of the fourth digit wound by Dr. Sweeney. He tolerated the procedure well. States that the pain is well controlled. Medications: List reviewed. Physical Examination: Vital Signs: Temperature 97.2, heart rate 74, blood pressure 139/81, respirations 16, O2 97% on 2 L via nasal cannula. General: Awake, alert, oriented x3, ill-appearing male. CV: S1, S2. Regular rate and rhythm. Peripheral pulses present. Respiratory: Moving air well bilaterally. No wheezing or stridor. Gastrointestinal: Abdomen is soft, nontender, nondistended. Positive bowel sounds. Extremities: No clubbing, cyanosis, or edema. Neurologic: Nonfocal. Laboratory Data: Creatinine 0.81, glucose ranging from 213-183. Wound cultures growing staph aureus and MRSA. Pathology report confirms osteomyelitis. Assessment And Plan: A 57-year-old male with, 1.Osteomyelitis of the right foot, status post fourth digit amputation secondary to methicillin-resi stant Staphylococcus aureus, sensitive to Levaquin and vancomycin. We will continue antibiotics. ID on board. The patient had repeat washout and closure of the wound today by Dr. Sweeney. 2.Acute respiratory distress secondary to pulmonary edema. We will give Lasix. Discontinue IV flui ds. 3.Hyponatremia. The patient was on normal saline. However, we will discontinue IV fluids due to pu lmonary edema and monitor. 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 Increase dose of Lantus t o 20 at bedtime. The patient now on aggressive sliding scale. Hemoglobin A1c is 11%. We will saad nue to monitor Accu-Cheks. 5.Fracture of the proximal phalanx of the fourth toe, nondisplaced, status post amputation. 6.Essential hypertension, stable on medications. 7.History of cerebrovascular accident with no residual weakness. We will resume Plavix 24 hours pos t surgery. 8.Acute kidney injury. We will continue to monitor creatinine and avoid NSAIDs, improved. 9.Nonintractable nausea, vomiting, chronic secondary to cerebrovascular accident. Continue antiemet ics p.r.n. 10.Deep venous thrombosis prophylaxis with sequential compression devices. Plan: Follow up with culture results. Likely discharge in the next 24-48 hours depending on clinica l response. /MODL Voice ID: [id number] Report ID: [id number]
[2018-06-25] MEDS: ATORVASTATIN 40 MG TAB PO SCH (20:35)
[2018-06-25] MEDS: TRAMADOL HCL 50 MG TAB PO PRN (20:36)
[2018-06-25] MEDS ORDERED: INSULIN GLARGINE 100 UNITS/ML SQ SCH (21:00)
[2018-06-25 21:28] VITALS: O2SAT 98
[2018-06-25] MEDS: ACETAMINOPHEN 500 MG TAB PO PRN (23:21)
[2018-06-26] MEDS: ACETAMINOPHEN 500 MG TAB PO PRN ×3 (01:30→12:44)
[2018-06-26] MEDS: ATENOLOL 25 MG TAB PO SCH (05:09)
[2018-06-26] MEDS: TRAMADOL HCL 50 MG TAB PO PRN ×2 (05:10→16:03)
[2018-06-26] MEDS: LEVOTHYROXINE SOD 0.075 MG TAB PO SCH (05:10)
[2018-06-26 05:20] LABS: Absolute Monocytes 0.8 K/uL (0.1-1.3); Absolute Neutrophil 5.1 K/uL (1.8-8.0); Basophils % 0.8 % (0-1.3); Eosinophils % 2.5 % (0-4.4); Hematocrit 25.4 % (39.6-49.0); Lymphocytes % 13.7 % (15.3-44.8); MPV 8.6 fL (7.6-11.3); Monocytes % 11.2 % (3.3-12.3); RBC Red Blood Cell Count 3.05 M/uL (4.33-5.43)
[2018-06-26 05:31] LABS: Albumin 2.2 g/dL (3.4-5.0); Bilirubin Total 0.3 mg/dL (0.2-1.0); Potassium 3.2 mmol/L (3.5-5.1); Protein, Total 6.1 g/dL (6.4-8.2)
[2018-06-26] MEDS: POTASSIUM 25 MEQ EFFERV TAB PO ONE ×2 (05:35→06:00)
[2018-06-26] MEDS: ONDANSETRON 4 MG/2 ML VIAL IV PRN (06:52)
[2018-06-26] MEDS ORDERED: POTASSIUM CL SA 10 MEQ TAB PO ONE (06:52)
[2018-06-26] MEDS: INSULIN -REGULAR HUMAN 50 UNIT/0.5 ML ML SQ SCH ×2 (07:30→12:26)
[2018-06-26] MEDS: PANTOPRAZOLE 40MG TABLET PO SCH (08:56)
[2018-06-26] MEDS: BISACODYL E.C. 5 MG TAB PO SCH ×2 (08:56→09:00)
[2018-06-26] MEDS: ESCITALOPRAM 20 MG TAB PO SCH (08:56)
[2018-06-26] MEDS: DOCUSATE NA 100 MG CAP PO SCH ×2 (08:57→09:00)
[2018-06-26] MEDS: CLOPIDOGREL 75 MG TABLET PO SCH (09:54)
--- NOTE | 2018-06-26 11:09 | P.PN ---
Subjective Date of Service: 06/26/18 Chief Complaint: Right 4th toe infection Subjective: No new changes, Improving, Doing well Review of Systems 10-point ROS is otherwise unremarkable Physical Examination - Vital Signs Temperature: 99.1 F Blood Pressure: 140/80 Pulse: 98 Respirations: 16 Pulse Ox (%): 98 - Physical Exam General: Alert, In no apparent distress, Oriented x3 Cardiovascular: No edema, Normal pulses Capillary refill: <2 Seconds Musculoskeletal: No clubbing, No swelling, No contractures, No erythema, No tenderness, No warmth Integumentary: Other (wound closure is well coapted right fourth interspace. No erythema plantarly right foot, consistent with reactive hyperemia. No purulence from wound. Drain intact) Neurological: Abnormal sensation - Studies Microbiology Data (last 24 hrs): 06/20/18 17:30 Blood - Blood Aerobic Blood Culture - Final No growth in 5 days. 06/20/18 17:30 Blood - Blood Anaerobic Blood Culture - Final No growth in 5 days. 06/20/18 17:10 Blood - Blood Aerobic Blood Culture - Final No growth in 5 days. 06/20/18 17:10 Blood - Blood Anaerobic Blood Culture - Final No growth in 5 days. Assessment And Plan - Current Problems (Diagnosis) (1) Cellulitis of right toe Current Visit: Yes Status: Acute Plan: 1. Patient to be npo past midnight 2. Patient to have surgery tomorrow morning to include staged amputation of the right fourth digit with incision and drainage. Patient unable to have surgery this evening because he has been drinking water this afternoon and ate 10 grapes an hour before I saw him - Plan 1. Patient to be d/c to home on oral antibiotics 2. dressing to be clean, dry and intact. No bathing right foot 3. NWB right foot 4. Patient to follow up in wound care 06/28/18 at 8:00 am. Will pull drain at that point Discharge Plan: Home Plan to discharge in: 24 Hours Physician Review: Patient Assessed, Agree with Above Assessment and Plan
[2018-06-26] MEDS ORDERED: HYDRALAZINE HCL 20 MG/ML VIAL IV ONE (12:05)
[2018-06-26] MEDS: VANCOMYCIN 1.25 GM in NA CHLORIDE 0.9% 250 ML IVPB SCH (12:27)
[2018-06-26 12:49] VITALS: TEMP 97.6
[2018-06-26 13:46] VITALS: BP 130/90
--- NOTE | 2018-06-26 14:12 | DS ---
Date of Discharge: 06/26/2018 Consultants: Dr. Sweeney with Podiatry and Dr. Lee with Infectious Disease. Procedures: 1.On 06/23/2018, right foot 4th toe amputation, I and D. 2.On 06/25/2018, incision and drainage and closure of right foot wound with a Yomi drain, both do ne by Dr. Sweeney. Admitting Diagnoses: 1.Cellulitis of the right toe. 2.Open toe wound. 3.Hyponatremia. 4.Diabetes mellitus type 2 with a long-term use of insulin with skin complications. 5.Fracture of phalanx, right foot, closed, proximal. 6.Essential hypertension. 7.History of cerebrovascular accident. 8.Acute kidney injury. 9.Nausea and vomiting. Discharge Diagnoses: 1.Osteomyelitis of the right foot status post 4th digit amputation, secondary to methicillin-resista nt Staphylococcus aureus. 2.Acute respiratory distress secondary to pulmonary edema, improved. 3.Hyponatremia, corrected. 4.Hypokalemia, replace. 5.Diabetes mellitus type 2 with long-term use of insulin with neuropathy, uncontrolled. Hemoglobin A1c 11.4%. 6.Fracture of the proximal phalanx of the 4th toe, nondisplaced, status post amputation. 7.Essential hypertension, not well controlled. 8.History of cerebrovascular accident with no residual weakness. 9.Non-intractable nausea and vomiting, chronic, secondary to cerebrovascular accident. 10.Acute kidney injury, resolved. Hospital Course: The patient is a 57-year-old male, comes into the hospital with right 4th toe infec tion. The patient has neuropathy, and therefore condition worsened. The patient is a very uncontrol led diabetic, as his A1c is 11.4%. His blood pressure also is not well controlled. His workup showe d elevated white blood cell count. His creatinine was also elevated. He was given IV fluids, which corrected his creatinine. He also had electrolyte abnormalities including low sodium, magnesium, and potassium, which were corrected. The patient responded well to IV antibiotics. Blood culture showed no growth, final. His wound cult ures grew out MRSA and Staph aureus. Once I saw the patient, I consulted Dr. Sweeney for surgical eval uation. The patient then went for the procedures as mentioned above. He had a 4th toe amputation an d subsequent closure of the wound with Yomi drain. The patient became afebrile. His white count normalized. He did not have any signs of sepsis. He was responding to antibiotics. The patient was seen by infectious Disease Dr. Lee, who recommended oral antibiotics upon discharge. The patient was then cleared from consultants' standpoint. His cellulitis had significantly improved. The 4th toe, which had osteomyelitis was amputated. He will have a total of 2 weeks of antibiotics. He has received 5 days of antibiotics here in the hospital. Will finish off course of Levaquin. The patien t is to follow up closely with his primary care physician in 2-3 days. Follow up with Dr. Sweeney on [facility] on[facility], 06[facility]28/2018[facility]. Follow up with Dr. Lee, ID, as needed. Return to ER for worsening condition. Diet: Diabetic. The patient understands that tight glycemic control is important in Wound Healing. If his wound does not heal well it can lead to further worsening of his condition including bleeding , further infection, osteomyelitis, sepsis and even . Activity: Nonweightbearing on the right foot. No driving or operating heavy machinery while on narc otics. Medications: As per medication reconciliation list. Physical Examination: General: Awake, alert, oriented x3. No acute distress. CV: S1, S2. No murmurs. Respiratory: Moving air well bilaterally. Abdomen: Soft, nontender, nondistended. Positive bowel sounds. Extremities: No clubbing, cyanosis, or edema. Neurologic: Nonfocal. Skin: Right foot incision clean, dry, intact. Erythema significantly improved. Total time spent discharging the patient was 41 minutes. /JACINTO Voice ID: [id number] Report ID: [id number]
== END 2018-06-26 16:54 | disposition home or self-care (01) | DRG 617 ==
LOC: ER 16:07 → ERHOLD 18:26 → 2ND 20:02
PROVIDERS: ADMIT Family Medicine; ATTEND Family Medicine
PROC: 0Y9M0ZZ Drainage of Right Foot, Open Approach (ICD-10-PCS; 2018-06-23)
PROC: 0Y6V0Z0 Detachment at Right 4th Toe, Complete, Open Approach (ICD-10-PCS; principal; 2018-06-23 07:30)
PROC: 0Y9M00Z Drainage of Right Foot with Drainage Device, Open Approach (ICD-10-PCS; 2018-06-24)
PROC: 0HBMXZZ Excision of Right Foot Skin, External Approach (ICD-10-PCS; 2018-06-24)
DX: E11.69 Type 2 diabetes mellitus with other specified complication (principal); M86.9 Osteomyelitis, unspecified; E87.1 Hypo-osmolality and hyponatremia; J81.1 Chronic pulmonary edema; E11.52 Type 2 diabetes mellitus with diabetic peripheral angiopathy with gangrene; I96 Gangrene, not elsewhere classified; L03.031 Cellulitis of right toe; N17.9 Acute kidney failure, unspecified; S92.514A Nondisplaced fracture of proximal phalanx of right lesser toe(s), initial encounter for closed fracture; R06.03 Acute respiratory distress; X58.XXXA Exposure to other specified factors, initial encounter; E11.65 Type 2 diabetes mellitus with hyperglycemia; B95.62 Methicillin resistant Staphylococcus aureus infection as the cause of diseases classified elsewhere; E11.621 Type 2 diabetes mellitus with foot ulcer; L97.519 Non-pressure chronic ulcer of other part of right foot with unspecified severity; E11.40 Type 2 diabetes mellitus with diabetic neuropathy, unspecified; I69.398 Other sequelae of cerebral infarction; I10 Essential (primary) hypertension; E78.5 Hyperlipidemia, unspecified; E03.9 Hypothyroidism, unspecified; K21.9 Gastro-esophageal reflux disease without esophagitis; Z23 Encounter for immunization; Z79.4 Long term (current) use of insulin
CPT/HCPCS: 36415; 71045; 80048; 80053; 80076; 80202; 81003; 81015; 82565; 82962; 83036; 83605; 83735; 84100; 84132; 84145; 85025; 85610; 87040; 87070; 87075; 87077; 87186; 87205; 88304; 88305; 88311; 90471; 90714; 93971; 94760; 96361; 96365; 96367; 99285; J0360; J1650; J1940; J2250; J2405; J2704; J3010; J3370; J3475; J7030